=== PATIENT | female | born 1955 | race Caucasian/White ===

== ENCOUNTER 2020-02-29 14:10 | Inpatient (IN) | payer BC, SELFPAY ==
[2020-02-29] VITALS (8 sets, daily range): BP systolic 117–130; BP diastolic 65–93; PULSE 97–112; RESP 18–20; TEMP 36.8–37; O2SAT 90–100; BMI 30.1
--- NOTE | ~2020-02-29 | XR_ITS ---
EXAMINATION: XR chest 1V portable EXAM DATE: 02/29/2020 15:06 INDICATION: cough, SOB, COVID+ . TECHNIQUE: Portable AP frontal chest x-ray was obtained. Comparison is made to prior examination from 04/05/2018. FINDINGS: Extensive bilateral abnormal reticulonodular airspace disease, probably COVID-19 pneumonia given history provided. Lungs were clear on prior x-ray. There is no pneumothorax suspected. There ar e no pleural effusions. Cardiomediastinal silhouette is normal. Moderate thoracolumbar spondylosis. IMPRESSION: Extensive bilateral reticulonodular airspace disease. Clinical correlation. Reviewed, dictated and finalized at location A. MAKER IMPRESSION: Extensive bilateral reticulonodular airspace disease. Clinical cor relation.
--- NOTE | ~2020-02-29 | CT_ITS ---
EXAMINATION: CTA chest PE protocol DATE: 02/29/2020 17:29 INDICATION: COVID positive presenting with shortness of breath and cough TECHNIQUE: Computed tomography (CT) pulmonary angiogram of the chest was performed with 100 mL Omnipa que-350 intravenous contrast. Additional 3D reconstructions utilizing coronal maximum intensity proje ction (MIP) were performed. Automated exposure control and iterative reconstruction technique were em ployed. The dose-length product was 514.17 mGy-cm. COMPARISON: None FINDINGS: Excellent contrast opacification of the pulmonary arteries. There is moderate streak artifact from de nse contrast in the superior vena cava and right atrium. Mild scattered respiratory motion artifact w hich does not significantly limit evaluation. There are multiple bilateral pulmonary emboli including the posterior basilar segmental pulmonary artery of the right lower lobe and multiple subsegmental p ulmonary arteries in all of the remaining lobes of both lungs. Heart size is normal. There is flatten ing of the ventricular septum and relative enlargement of the right atrium and ventricles relative to the left consistent with secondary right heart strain. Enlargement of the central pulmonary arteries consistent with pulmonary arterial hypertension. Bilateral peripheral predominant groundglass opacit ies and consolidation consistent with COVID pneumonia lung disease. No pleural effusion. Mild likely reactive mediastinal and bilateral hilar lymphadenopathy. Status post cholecystectomy. Visualized upp er abdomen is otherwise unremarkable. Severe lower thoracic spondylosis. IMPRESSION: 1. Extensive bilateral pulmonary embolism with moderate clot burden and with physes consistent with p ulmonary arterial hypertension and right heart strain. 2. Extensive bilateral peripheral predominantly disease consistent with COVID 19 pneumonia. Reviewed, dictated and finalized at location . ETING INTELLIGENCE MANAGER IMPRESSION: 1. Extensive bilateral pulmonary embolism with moderate clot burden and with ph yses consistent with pulmonary arterial hypertension and right heart strain. 2. Extensive bilateral peripheral predominantly disease consistent with COVID 1 9 pneumonia.
--- NOTE | 2020-02-29 14:19 | ECG_ITS ---
Measurements Intervals [place] Rate: 116 P: 16 CT: 158 QRS: -3 QRSD: 81 T: 9 QT: 290 QTc: 404 Interpretive Statements SINUS TACHYCARDIA DELAYED PRECORDIAL R/S TRANSITION VOLTAGE CRITERIA FOR LVH MINIMAL Q WAVES- HIGH LATERAL LEADS BORDERLINE T WAVE ABNORMALITY- INFERIOR LEADS BASELINE ARTIFACT- I, III, AVL, V6 ABNORMAL ECG Electronically Signed On 02-29-2020 15:44:12 PRODUCT DEVELOPMENT SPECIALIST by Raphael Callaway D.O.
[2020-02-29 15:30] LABS: Basophils Absolute Auto 0.1 K/mm3 (0.0-0.1); Basophils Percent Auto 0.7 % (0.2-1.2); Eosinophils Percent Auto 0.2 % (0-4.4); Hematocrit 38.7 % (37.0-47.0); Hemoglobin 12.9 g/dL (12.0-15.0); Immature Granulocyte Absolute 0.07 K/mm3 (0.00-0.031); Immature Granulocyte Percent A 0.8 % (0-0.5); Lymphocytes Absolute Auto 0.78 K/mm3 (0.9-3.2); Lymphocytes Percent Auto 9.3 % (18.3-44.2); Mean Corpuscular HGB Conc 33.3 g/dl (32-36); Mean Corpuscular Hemoglobin 30.7 pg (26-34); Mean Corpuscular Volume 92.1 fl (80-100); Mean Platelet Volume 9.3 fl (7.4-10.4); Monocytes Percent Auto 11.4 % (2.6-8.5); Neutrophils Absolute Auto 6.5 K/mm3 (1.3-6.7); Neutrophils Percent Auto 77.6 % (45.5-73.1); Platelet Count Result 346 k/mm3 (150-375); Red Cell Distribution Width 12.9 % (11.5-14.5); White Blood Count 8.4 K/mm3 (4.5-10.0)
[2020-02-29 15:42] LABS: Partial Thromboplastin Time 33.1 SECONDS (22.3-36.8)
[2020-02-29 15:48] LABS: Alanine Aminotransferase 34 U/L (4-35); Albumin Level 3.3 g/dL (3.5-5.1); Alkaline Phosphatase 100 U/L (38-126); Anion Gap 7 mmol/L (8-16); Aspartate Amino Transferase 47 U/L (14-36); Bilirubin,Total 0.9 mg/dL (0.2-1.3); Blood Urea Nitrogen 9 mg/dL (7-17); Calcium 8.9 mg/dL (8.4-10.2); Carbon Dioxide 32 mmol/L (22-30); Chloride 95 mmol/L (98-107); Estimated CRCL calculation 65 ml/min; Estimated Glomerular Filt Rate > 60; Glucose 115 mg/dL (65-105); Potassium 4.1 mmol/L (3.4-5.0); Sodium 134 mmol/L (137-145)
[2020-02-29] MEDS: DEXAMETHASONE SOD PHOS INJ 4 MG/ML VIAL 6 MG IV PUSH (15:49)
--- NOTE | 2020-02-29 16:07 | ED.GENADULT ---
HPI - General Adult General Chief complaint: Shortness of Breath/Dyspnea Stated complaint: SOB - COVID + Time Seen by Provider: 02/29/20 14:19 Source: RN notes reviewed History of Present Illness HPI narrative: Patient presents emergency department from home via EMS for shortness of breath. Patient states she was diagnosed with Covid on February 14 she states that over the past 4 days she has been having increased shortness of breath states is associated with a cough that is nonproductive and nausea and vomiting. Patient does note subjective fevers as well. She denies any chest pain abdominal pain diarrhea or any other symptoms Related Data Home Medications Medication Instructions Recorded Confirmed albuterol sulfate 2.5 mg INHALATION QID PRN 02/29/20 amlodipine 5 mg PO DAILY 02/29/20 ciprofloxacin HCl 02/29/20 losartan-hydrochlorothiazide tablet 02/29/20 Allergies Allergy/AdvReac Type Severity Reaction Status Date / Time adhesive tape Allergy Severe Unverified 04/05/18 19:49 amoxicillin Allergy Severe Unverified 04/05/18 19:49 clarithromycin Allergy Severe Unverified 04/05/18 19:49 codeine Allergy Severe Unverified 04/05/18 19:49 fentanyl Allergy Severe Unverified 04/05/18 19:49 nickel Allergy Severe UNKNOWN Verified 04/05/18 19:49 Sulfa (Sulfonamide Allergy Severe Unverified 04/05/18 19:49 Antibiotics) sulfamethoxazole Allergy Severe Unverified 04/05/18 19:49 tetracycline Allergy Severe Unverified 04/05/18 19:49 trimethoprim Allergy Severe Unverified 04/05/18 19:49 wheat Allergy Severe GI UPSET Verified 04/05/18 19:49 ALL ANESTHETICS Allergy Severe NAUSEA/SEVERE Uncoded 10/17/15 21:30 VOMITING ALL BEE STINGS Allergy Severe ANAPHYLAXIS Uncoded 10/17/15 21:30 ALL SPIDER BITES Allergy Severe ANAPHYLAXIS Uncoded 10/17/15 21:30 BEEF Allergy Severe GI UPSET Uncoded 10/17/15 21:30 COW'S MILK/DAIRY Allergy Severe GI UPSET Uncoded 10/17/15 21:30 ECG ELECTRODE Allergy Severe BLISTERS Uncoded 10/17/15 21:30 NIGHTSHADE VEGETABLES Allergy Severe SWELLING Uncoded 10/17/15 21:30 AND INFLAMMATION IN JOINTS Pork Allergy Severe GI UPSET Uncoded 04/05/18 19:49 REFINED WHITE SUGAR Allergy Severe GI UPSET Uncoded 10/17/15 21:30 STAINLESS STEEL Allergy Severe UNKNOWN Uncoded 10/17/15 21:30 PLASTIC TAPE Allergy Intermediate ITCHING/LESA Uncoded 10/17/15 21:30 H Review of Systems Review of Systems: Narrative: Gen.: Denies fevers or chills ENT: Denies congestion Respiratory: See HPI CV: Denies chest pain or palpitations GI: Denies abdominal pain or diarrhea, reports nausea vomiting Musculoskeletal: Denies back pain or muscle pain Neuro: Denies numbness, tingling, weakness or focal weakness Skin: Denies rash Except as documented, all other systems reviewed and negative [facility] Past Medical History Medical History (Updated 02/29/20 @ 17:59 by Geovani Blanc DO) Hypertension Social History Social History (Updated 02/29/20 @ 16:08 by Geovani Blanc DO) Smoking status: Never smoker Exam Narrative: Exam Narrative: APPEARANCE: No acute distress, nontoxic, resting in bed EYES: EOMI HEENT: Normocephalic, atraumatic, OMM RESPIRATORY: No respiratory distress crackles throughout the bilateral lung mistry, no wheezing CARDIOVASCULAR: Tachycardic and regular without murmurs rubs or gallops. ABDOMINAL: Soft, nontender, nondistended, no rebound or guarding MUSCULOSKELETAl: Moves all extremities. No clubbing, cyanosis or edema. NEURO: Awake and alert. Following commands, speech normal, no focal deficits SKIN:: Warm, dry. No rashes lesions or abrasions PSYCHIATRIC: Normal affect/mood, Course Course Emergency Course: Called and discussed with STAR Xiong presentation work-up agrees with admission at this time. Agrees with [facility] admission by NICOLA Discussed with patient and family results of workup and diagnosis. Discussed need for admission. Patient and family understand and agree to current brian
[2020-02-29 16:38] LABS: D Dimer 11.92 ug/mL (<0.48)
--- NOTE | 2020-02-29 17:59 | PC.NURSE ---
Called lab to add on trop
[2020-02-29 18:22] LABS: Troponin I < 0.012 ng/mL (0.000-0.034)
[2020-02-29] MEDS: ENOXAPARIN 100 MG/ML SYRINGE 85 MG SUB-Q (18:22)
--- NOTE | 2020-02-29 19:45 | PM.IMHP ---
H&P: HPI History of Present Illness Date/Time: 02/29/20 19:45 Chief complaint: Shortness of breath. Narrative: Kimberlee Crooks is a 65-year-old female with hypertension, mitral valve prolapse, and SVT status post cardiac ablation who presented to the emergency department earlier today via EMS from home for evaluation of shortness of breath. She had bunion surgery on January 25, 2020 and was laid up for a couple of weeks due to that. Just before she developed a cough and shortness of breath and she tested positive for COVID-19 on 02/13/20. It sounds like she had a rough couple of weeks but started feel somewhat better on Thursday, however since that time she notes increased and worsening shortness of breath in addition to the cough that she has had since her symptoms began. She also notes nausea and what sounds like posttussive emesis and subjective fever. D-dimer was significantly elevated on arrival to the emergency department she was found to have bilateral pulmonary emboli with moderate clot burden she is being admitted in this setting. She believes she had a DVT previously although it sounds like that may have been a superficial clot prior to varicose vein removal. Again she denies chest pain and has not had pleuritic pain or palpitations. No lightheadedness, dizziness, syncope, or near syncope. Except as documented, all other systems were reviewed and are negative. Review of Systems Review of Systems: Narrative: Twelve systems are reviewed with pertinent positives and negatives as per HPI. Except as documented, all other systems were reviewed and are negative. [facility] Past Medical History Medical History (Updated 02/29/20 @ 23:10 by Inga Stubbs PA-C) Diverticulitis Status post left colectomy. Hyperlipidemia Intolerant to statins secondary to muscle pain. Hypertension Mitral valve prolapse Osteoarthritis Peripheral neuropathy Surgical History Surgical History (Updated 02/29/20 @ 22:58 by Inga Stubbs PA-C) History of arthroscopic knee surgery Removal of what sounds like Mari's cyst bilaterally. History of bilateral carpal tunnel release History of bilateral knee replacement History of bladder repair surgery History of cardiac radiofrequency ablation (~2000) History of hysterectomy (~1981) History of partial colectomy (~12/18/10) Laparoscopic left colectomy for treatment of perforated diverticulitis. History of sinus surgery History of vascular surgery Varicose vein ablation. Family History Family History (Updated 02/29/20 @ 22:58 by Inga Stubbs PA-C) Other Heart disease Hypertension Social History Social History (Updated 02/29/20 @ 22:59 by Inga Stubbs PA-C) Social History: Surrogate decision maker: Niharika Haq (daughter) or Duran Newsome (son). Code status: Full code. Smoking status: Never smoker Alcohol intake: never Substance use: never Additional living arrangements comments: Lives in [place]. Meds Home Medications and Allergies Home Medications Medication Instructions Recorded Confirmed Type albuterol sulfate 2.5 mg INHALATION QID PRN 02/29/20 History amlodipine 5 mg PO DAILY 02/29/20 History ciprofloxacin HCl 02/29/20 History losartan-hydrochlorothiazide tablet 02/29/20 History Allergies Allergy/AdvReac Type Severity Reaction Status Date / Time adhesive tape Allergy Severe Unverified 04/05/18 19:49 amoxicillin Allergy Severe Unverified 04/05/18 19:49 clarithromycin Allergy Severe Unverified 04/05/18 19:49 codeine Allergy Severe Unverified 04/05/18 19:49 fentanyl Allergy Severe Unverified 04/05/18 19:49 nickel Allergy Severe UNKNOWN Verified 04/05/18 19:49 Sulfa (Sulfonamide Allergy Severe Unverified 04/05/18 19:49 Antibiotics) sulfamethoxazole Allergy Severe Unverified 04/05/18 19:49 tetracycline Allergy Severe Unverified 04/05/18 19:49 trimethoprim Allergy Severe Unverified 04/05/18 19:49 wheat Allergy
--- NOTE | 2020-02-29 23:31 | ADMGEN ---
This patient, Kimberlee Crooks, was admitted to IMU Room 213-01 @ 2042, by bed, from the Emergency department. Patient/family oriented to hospital policies and general routines including ID bracelet, bed and alarms, visiting hours, pain management, procedures, bathroom and other care routines, personal items, smoking policy, room service/diet, and visiting hours. Information on how to activate the Rapid Response Team has been discussed. Patient/Family are encouraged to report perceived risks to care and to ask questions if they do not understand what they are told or what they should do.
[2020-02-29 23:52] LABS: Troponin I < 0.012 ng/mL (0.000-0.034)
[2020-03-01] VITALS (17 sets, daily range): BP systolic 104–120; BP diastolic 58–82; PULSE 83–113; RESP 16–18; TEMP 36.4–37.1; O2SAT 86–98
--- NOTE | 2020-03-01 | ECHO_ITS ---
Patient Info Name: Kimberlee Crooks Age: 65 years : 1955 Gender: Female Ht: 64 in Wt: 182 lbs BSA: 1.96 m2 HR: 102 bpm BP: 108 / 58 mmHg Heart Rhythm: Sinus Rhythm Technical Quality: Good Exam Date: 03/01/2020 11:02 AM Exam Location: [facility] Patient Status: Inpatient Admit Date: 03/01/2020 Staff Ordering Physician: Inga Stubbs PA-C Civil Litigation Attorney: Darren Fink RDCS, RT Attending Provider: Andrew Pfeiffer MD Referring Physician: Enoc BLANCAS; Exam Type: CA echo doppler color flow Study Info Indications I27.9 - Pulmonary heart disease, unspecified Complete two-dimensional, color flow and Doppler transthoracic echocardiogram is performed. Summary 1. Complete two-dimensional, color flow and Doppler transthoracic echocardiogram is performed. 2. Left ventricular chamber dimension is normal. 3. Left ventricular systolic function is normal, estimated at 60-65%. 4. Right ventricular chamber dimension is normal. 5. No significant valvular abnormalities. 6. No stigmata of right ventricular pressure overload. Left Ventricle Left ventricular chamber dimension is normal. Left ventricular systolic function is normal, estimated at 60-65%. The left ventricular diastolic function is grade I diastolic dysfunction. Right Ventricle Right ventricular chamber dimension is normal. Left Atria Left atrial chamber dimension is normal. Right Atria Right atrial chamber dimension is normal. Aortic Valve The aortic valve is trileaflet. There is mild aortic valve sclerosis. Pulmonic Valve The pulmonic valve is not well visualized. Mitral Valve The mitral valve has normal leaflets. The mitral valve annulus is mildly calcified. Tricuspid Valve The tricuspid valve leaflets are normal. Pericardium/Pleural The pericardium appears normal. Aorta The aortic root size at the sinus of Valsalva is normal. Tricuspid Valve Name Value Normal TV Regurgitation Doppler TR Peak Velocity 272 cm/s TR Peak Gradient 30 mmHg Report Signatures
[2020-03-01 06:57] LABS: Basophils Percent Auto 0.2 % (0.2-1.2); Hematocrit 34.1 % (37.0-47.0); Hemoglobin 11.1 g/dL (12.0-15.0); Immature Granulocyte Absolute 0.03 K/mm3 (0.00-0.031); Immature Granulocyte Percent A 0.7 % (0-0.5); Lymphocytes Absolute Auto 0.43 K/mm3 (0.9-3.2); Lymphocytes Percent Auto 9.7 % (18.3-44.2); Mean Corpuscular HGB Conc 32.6 g/dl (32-36); Mean Corpuscular Hemoglobin 29.5 pg (26-34); Mean Corpuscular Volume 90.7 fl (80-100); Mean Platelet Volume 9.2 fl (7.4-10.4); Monocytes Absolute Auto 0.3 K/mm3 (0.1-0.6); Monocytes Percent Auto 5.9 % (2.6-8.5); Neutrophils Absolute Auto 3.7 K/mm3 (1.3-6.7); Neutrophils Percent Auto 83.5 % (45.5-73.1); Platelet Count Result 340 k/mm3 (150-375); Red Blood Count 3.76 M/mm3 (4.2-5.4); Red Cell Distribution Width 12.6 % (11.5-14.5); White Blood Count 4.4 K/mm3 (4.5-10.0)
[2020-03-01 07:15] LABS: Anion Gap 3 mmol/L (8-16); Blood Urea Nitrogen 16 mg/dL (7-17); Calcium 8.4 mg/dL (8.4-10.2); Carbon Dioxide 33 mmol/L (22-30); Chloride 99 mmol/L (98-107); Estimated CRCL calculation 66 ml/min; Estimated Glomerular Filt Rate > 60; Glucose 122 mg/dL (65-105); Magnesium 2.6 mg/dL (1.6-2.3); Potassium 5.2 mmol/L (3.4-5.0); Sodium 135 mmol/L (137-145)
[2020-03-01] MEDS: ENOXAPARIN 100 MG/ML SYRINGE 85 MG SUB-Q ×2 (08:57→20:39)
--- NOTE | 2020-03-01 14:58 | PM.IMPN ---
Progress Note: A&P Assessment and Plan (1) Acute respiratory failure with hypoxia: Code(s): J96.01 - Acute respiratory failure with hypoxia Status: Acute Assessment and Plan: From CT chest still evidence of COVID pneumonia outside the window for remdesivir, I added steroids oral and tessalon perles (2) Bilateral pulmonary embolism: Code(s): I26.99 - Other pulmonary embolism without acute cor pulmonale Status: Acute Assessment and Plan: on lovenox BID and oxygen Large PE with clot burden, pulmology consulted for recommendationsas Cardiology out of town Echo ordered continue to watch oxygenation overnite pt is presently on 2 liters (3) COVID-19: Code(s): U07.1 - COVID-19 Status: Acute Assessment and Plan: Feb 14 positive for covid (4) Hypertension: Code(s): I10 - Essential (primary) hypertension Status: Chronic Assessment and Plan: Continue to monitor Subjective Date/time seen: 03/01/20 14:58 Interval history: Mrs Crooks is a 65-year-old female with hypertension, mitral valve prolapse, and SVT status post cardiac ablation who presented to the emergency department earlier today via EMS from home for evaluation of shortness of breath. She had bunion surgery on January 25, 2020 and was laid up for a couple of weeks due to that. COVID positive on feb 14, BL PE, PHTN. Echo ordered. Pulmology consulted. Await echocardiology continue to anticoagulate for now. Vitals stable, pt is on 2 liters. HR is slightly up. can increase oxygen levels when ambulating. Pt had a DVT in past. Was on lovenox then. Pt feels comfortable on oxygen. Advised to ambulate less. Review of Systems Review of Systems: All systems reviewed & are unremarkable except as noted in HPI and below Exam Narrative: Exam Narrative: General: Well-developed female, pleasant friendly holding clear good conversation HEENT: PERRLA Neck: Supple. Respiratory: Mildly tachypneic. Speaking in full sentences. Neurological: Alert. Cranial nerves 2-12 are grossly intact. No gross focal deficits to casual conversation. Psychiatric: Pleasant and cooperative with normal mood and affect. Judgment and insight intact. Objective Data Vital Signs Vital Signs: Vital Signs - 24 hr 02/29/20 16:24 02/29/20 18:23 02/29/20 20:00 Temperature 36.8 C Pulse Rate 112 H 105 H 106 H Respiratory Rate 18 20 20 Blood Pressure 117/88 127/87 130/93 H Pulse Oximetry 97 97 90 02/29/20 20:42 02/29/20 22:00 02/29/20 23:51 Temperature 37.0 C Pulse Rate 107 H 97 97 Respiratory Rate 18 Blood Pressure 120/65 Pulse Oximetry 97 03/01/20 00:00 03/01/20 02:00 03/01/20 03:58 Temperature 36.4 C L Pulse Rate 97 97 92 Respiratory Rate 18 18 Blood Pressure 108/58 L Pulse Oximetry 97 95 03/01/20 04:00 03/01/20 06:00 03/01/20 08:00 Temperature 36.9 C Pulse Rate 95 92 101 H Respiratory Rate 16 Blood Pressure 120/72 Pulse Oximetry 86 L 95 03/01/20 08:55 03/01/20 10:00 03/01/20 11:42 Temperature 37.1 C Pulse Rate 113 H 105 H Respiratory Rate 16 Blood Pressure 104/63 Pulse Oximetry 95 95 03/01/20 12:00 03/01/20 14:00 Temperature Pulse Rate 109 H 109 H Respiratory Rate Blood Pressure Pulse Oximetry 95 Intake/Output Intake/Output: Intake & Output 02/27/20 02/28/20 02/29/20 03/01/20 23:59 23:59 23:59 23:59 Intake Total 940 Output Total 850 Balance 90 Meds/Results Medications: Active Medications Generic Name Dose Route Start Last Admin Trade Name Freq PRN Reason Stop Dose Admin Acetaminophen 650 mg 03/01/20 07:57 Acetaminophen 325 Mg Tablet PO Q6H PRN Mild Pain (1-3) or Fever Albuterol 2 puff 02/29/20 17:03 Albuterol Sulfate (*Sp) Aerosol 1 Puff INHALATION QIDRT PRN Shortness Of Breath Amlodipine Besylate 5 mg 03/01/20 09:00 03/01/20 12:18 Amlodipine Besylate 5 Mg Tablet PO Not
[2020-03-01] MEDS: BENZONATATE 100 MG CAPSULE 200 MG PO (17:12)
[2020-03-01] MEDS: SODIUM POLYSTYRENE SULFONONATE 15 GM/60 ML BTL PO (18:00)
[2020-03-01] MEDS: MONTELUKAST SODIUM 10 MG TABLET PO (20:39)
[2020-03-01] MEDS: hydroCHLOROthiazide 25 MG TABLET PO (20:39)
[2020-03-01] MEDS: LOSARTAN POTASSIUM 100 MG TABLET PO (20:39)
--- NOTE | 2020-03-01 22:43 | PC.NURSE ---
This patient, Kimberlee Crooks, was transferred to [facility] on 03/01/20 at 2235. Personal belongings sent with patient. Report given to Brendan KRAMER. Appropriate documentation sent with patient.
[2020-03-02] VITALS (7 sets, daily range): BP systolic 90–115; BP diastolic 57–77; PULSE 80–117; RESP 16–20; TEMP 36.8–37.1; O2SAT 92–97
[2020-03-02 06:33] LABS: Hematocrit 33.8 % (37.0-47.0); Mean Corpuscular HGB Conc 32.5 g/dl (32-36); Mean Corpuscular Hemoglobin 29.6 pg (26-34); Mean Corpuscular Volume 90.9 fl (80-100); Mean Platelet Volume 8.9 fl (7.4-10.4); Platelet Count Result 428 k/mm3 (150-375); Red Blood Count 3.72 M/mm3 (4.2-5.4); Red Cell Distribution Width 12.8 % (11.5-14.5); White Blood Count 5.5 K/mm3 (4.5-10.0)
[2020-03-02 06:45] LABS: Anion Gap 2 mmol/L (8-16); Blood Urea Nitrogen 18 mg/dL (7-17); Calcium 8.4 mg/dL (8.4-10.2); Carbon Dioxide 36 mmol/L (22-30); Chloride 97 mmol/L (98-107); Estimated CRCL calculation 66 ml/min; Estimated Glomerular Filt Rate > 60; Glucose 95 mg/dL (65-105); Potassium 3.8 mmol/L (3.4-5.0); Sodium 135 mmol/L (137-145)
[2020-03-02] MEDS: BENZONATATE 100 MG CAPSULE 200 MG PO ×3 (08:35→17:34)
[2020-03-02] MEDS: ENOXAPARIN 100 MG/ML SYRINGE 85 MG SUB-Q ×2 (08:35→20:53)
[2020-03-02] MEDS: amLODIPine BESYLATE 5 MG TABLET PO (08:36)
[2020-03-02] MEDS: DEXAMETHASONE 2 MG TABLET 6 MG PO (08:36)
--- NOTE | 2020-03-02 14:09 | PM.IMPN ---
Progress Note: A&P Assessment and Plan (1) Acute respiratory failure with hypoxia: Code(s): J96.01 - Acute respiratory failure with hypoxia Status: Acute Assessment and Plan: From CT chest still evidence of COVID pneumonia outside the window for remdesivir, I added steroids oral and tessalon perles Pt having wet cough greenish in color Pt to start evaquin add zofran as pt has sickness with ABX (2) Bilateral pulmonary embolism: Code(s): I26.99 - Other pulmonary embolism without acute cor pulmonale Status: Acute Assessment and Plan: on lovenox BID and oxygen Large PE with clot burden, pulmology consulted for recommendations as Cardiology out of town Echo ordered continue to watch oxygenation overnite pt is presently on 5 liters Pulmology consulted (3) COVID-19: Code(s): U07.1 - COVID-19 Status: Acute Assessment and Plan: Feb 14 positive for covid (4) Hypertension: Code(s): I10 - Essential (primary) hypertension Status: Chronic Assessment and Plan: BP is bit low and we will hold HTN medications Subjective Date/time seen: 03/02/20 14:09 Interval history: Mrs Crooks is a 65-year-old female with hypertension, mitral valve prolapse, and SVT status post cardiac ablation who presented to the emergency department earlier today via EMS from home for evaluation of shortness of breath. She had bunion surgery on January 25, 2020 and was laid up for a couple of weeks due to that. COVID positive on feb 14, BL PE, PHTN. Echo ordered. Pulmology consulted. Pt is on 5 liters of oxygen presently. Bp little soft, I will hold her BP medications. Overall pt is feeling better Review of Systems Review of Systems: All systems reviewed & are unremarkable except as noted in HPI and below Cardiovascular: Cardiovascular: Denies chest pain Respiratory: Respiratory: Reports cough and Reports dyspnea Comments: Wet cough Exam Narrative: Exam Narrative: General: Well-developed female, pleasant friendly holding clear good conversation HEENT: PERRLA Neck: Supple. Respiratory: Normal respiratory effect, on 5 liter of oxygen. Neurological: Alert. Cranial nerves 2-12 are grossly intact. No gross focal deficits to casual conversation. Psychiatric: Pleasant and cooperative with normal mood and affect. Judgment and insight intact. Objective Data Vital Signs Vital Signs: Vital Signs - 24 hr 03/01/20 15:34 03/01/20 16:00 03/01/20 18:00 Temperature 36.4 C L Pulse Rate 104 H 108 H 98 Respiratory Rate 16 16 Blood Pressure 108/64 Pulse Oximetry 95 95 03/01/20 20:00 03/01/20 22:00 03/01/20 22:50 Temperature 36.6 C Pulse Rate 96 83 Respiratory Rate 16 Blood Pressure 117/82 Pulse Oximetry 93 98 03/02/20 00:00 03/02/20 04:00 03/02/20 05:00 Temperature 36.9 C 36.9 C Pulse Rate 83 80 Respiratory Rate 16 16 Blood Pressure 90/60 L 93/57 L 110/68 Pulse Oximetry 97 96 03/02/20 08:00 03/02/20 12:00 Temperature 37.1 C 36.8 C Pulse Rate 88 88 Respiratory Rate 20 20 Blood Pressure 115/77 96/59 L Pulse Oximetry 97 96 Intake/Output Intake/Output: Intake & Output 02/28/20 02/29/20 03/01/20 03/02/20 23:59 23:59 23:59 23:59 Intake Total 1180 480 Output Total 1050 800 Balance 130 -320 Meds/Results Medications: Active Medications Generic Name Dose Route Start Last Admin Trade Name Freq PRN Reason Stop Dose Admin Acetaminophen 650 mg 03/01/20 07:57 Acetaminophen 325 Mg Tablet PO Q6H PRN Mild Pain (1-3) or Fever Albuterol 2 puff 02/29/20 17:03 Albuterol Sulfate (*Sp) Aerosol 1 Puff INHALATION QIDRT PRN Shortness Of Breath Amlodipine Besylate 5 mg 03/01/20 09:00 03/02/20 08:36 Amlodipine Besylate 5 Mg Tablet PO 5 mg DAILY AURA Administration Benzonatate 200 mg 03/01/20 17:00 03/02/20 08:35 Benzonatate 100 Mg Capsule PO 200 mg TID AURA Administration De
[2020-03-02] MEDS: hydroCHLOROthiazide 25 MG TABLET PO (20:53)
[2020-03-02] MEDS: MONTELUKAST SODIUM 10 MG TABLET PO (20:53)
[2020-03-03] VITALS (7 sets, daily range): BP systolic 96–125; BP diastolic 58–81; PULSE 75–95; RESP 16–18; TEMP 36.4–36.8; O2SAT 92–98
[2020-03-03] MEDS: DEXAMETHASONE 2 MG TABLET 6 MG PO (09:11)
[2020-03-03] MEDS: BENZONATATE 100 MG CAPSULE 200 MG PO ×3 (09:12→18:22)
[2020-03-03] MEDS: ENOXAPARIN 100 MG/ML SYRINGE 85 MG SUB-Q ×2 (09:13→20:24)
[2020-03-03] MEDS: ONDANSETRON HCL ODT 4 MG TABLET PO (09:17)
--- NOTE | 2020-03-03 16:54 | PM.IMPN ---
Progress Note: A&P Assessment and Plan (1) Acute respiratory failure with hypoxia: Code(s): J96.01 - Acute respiratory failure with hypoxia Status: Acute Assessment and Plan: From CT chest still evidence of COVID pneumonia outside the window for remdesivir, I added steroids oral and tessalon perles Pt having wet cough greenish in color Pt to start levaquin add zofran as pt has sickness with ABX pt feels much better today (2) Bilateral pulmonary embolism: Code(s): I26.99 - Other pulmonary embolism without acute cor pulmonale Status: Acute Assessment and Plan: on lovenox BID and oxygen Large PE with clot burden, pulmology consulted for recommendations as Cardiology out of town Echo ordered continue to watch oxygenation overnite pt is presently on 2 liters Pulmology consulted Continue to oxygen Consider which oral anticiagulation on thursday. (3) COVID-19: Code(s): U07.1 - COVID-19 Status: Acute Assessment and Plan: Feb 14 positive for covid (4) Hypertension: Code(s): I10 - Essential (primary) hypertension Status: Chronic Assessment and Plan: BP is bit low and we will hold HTN medications Subjective Date/time seen: 03/03/20 16:54 Interval history: Mrs Crooks is a 65-year-old female with hypertension, mitral valve prolapse, and SVT status post cardiac ablation who presented to the emergency department earlier today via EMS from home for evaluation of shortness of breath. She had bunion surgery on January 25, 2020 and was laid up for a couple of weeks due to that. COVID positive on feb 14, BL PE, PHTN. Echo ordered. Pulmology consulted. Pt is on 2 liters of oxygen presently. Bp little soft, I will hold her BP medications. Overall, pt is feeling better, anticoagulation will be considered on thursday. Some complaints of constipation. Review of Systems Review of Systems: All systems reviewed & are unremarkable except as noted in HPI and below Exam Narrative: Exam Narrative: General: Well-developed female, pleasant friendly holding clear good conversation HEENT: PERRLA Neck: Supple. Respiratory: Normal respiratory effect, on 2 liter of oxygen. Neurological: Alert. Cranial nerves 2-12 are grossly intact. No gross focal deficits to casual conversation. Psychiatric: Pleasant and cooperative with normal mood and affect. Judgment and insight intact. Objective Data Vital Signs Vital Signs: Vital Signs - 24 hr 03/02/20 20:00 03/03/20 00:00 03/03/20 04:00 Temperature 36.9 C 36.8 C 36.7 C Pulse Rate 95 88 75 Respiratory Rate 18 18 18 Blood Pressure 113/76 106/72 112/73 Pulse Oximetry 96 97 97 03/03/20 08:00 03/03/20 09:10 03/03/20 12:00 Temperature 36.6 C 36.4 C Pulse Rate 81 86 Respiratory Rate 18 16 Blood Pressure 125/81 96/67 L Pulse Oximetry 92 92 97 Intake/Output Intake/Output: Intake & Output 02/29/20 03/01/20 03/02/20 03/03/20 23:59 23:59 23:59 23:59 Intake Total 1180 1330 1170 Output Total 7422 184 8591 Balance 130 380 -30 Meds/Results Medications: Active Medications Generic Name Dose Route Start Last Admin Trade Name Freq PRN Reason Stop Dose Admin Acetaminophen 650 mg 03/01/20 07:57 Acetaminophen 325 Mg Tablet PO Q6H PRN Mild Pain (1-3) or Fever Albuterol 2 puff 02/29/20 17:03 Albuterol Sulfate (*Sp) Aerosol 1 Puff INHALATION QIDRT PRN Shortness Of Breath Amlodipine Besylate 5 mg 03/01/20 09:00 03/02/20 08:36 Amlodipine Besylate 5 Mg Tablet PO 5 mg DAILY [facility] Administration Benzonatate 200 mg 03/01/20 17:00 03/03/20 12:37 Benzonatate 100 Mg Capsule PO 200 mg TID [facility] Administration Dexamethasone 6 mg 03/02/20 08:00 03/03/20 09:11 Dexamethasone 2 Mg Tablet PO 03/11/20 08:01 6 mg DAILY@0800 [facility] Administration Docusate Sodium 100 mg 03/03/20 14:51 Docusate Sodium 100 Mg Capsule PO Q12H PRN Constipation
[2020-03-03] MEDS: hydroCHLOROthiazide 25 MG TABLET PO (20:24)
[2020-03-03] MEDS: MONTELUKAST SODIUM 10 MG TABLET PO (20:24)
[2020-03-04] VITALS (8 sets, daily range): BP systolic 102–110; BP diastolic 63–82; PULSE 74–88; RESP 16–18; TEMP 36.6–37.1; O2SAT 94–99
[2020-03-04] MEDS: ERGOCALCIFEROL 50,000 UNIT CAPSULE 50000 UNITS BY MOUTH (08:33)
[2020-03-04] MEDS: BENZONATATE 100 MG CAPSULE 200 MG PO ×3 (08:33→17:22)
[2020-03-04] MEDS: DEXAMETHASONE 2 MG TABLET 6 MG PO (08:33)
[2020-03-04] MEDS: ENOXAPARIN 100 MG/ML SYRINGE 85 MG SUB-Q ×2 (08:34→21:08)
[2020-03-04] MEDS: ONDANSETRON HCL ODT 4 MG TABLET PO (08:36)
[2020-03-04] MEDS: DOCUSATE SODIUM 100 MG CAPSULE PO (08:45)
--- NOTE | 2020-03-04 18:11 | PM.IMPN ---
Progress Note: A&P Assessment and Plan (1) Acute respiratory failure with hypoxia: Code(s): J96.01 - Acute respiratory failure with hypoxia Status: Acute Assessment and Plan: From CT chest still evidence of COVID pneumonia outside the window for remdesivir, I added steroids oral and tessalon perles Pt having wet cough greenish in color Pt to start levaquin add zofran as pt has sickness with ABX pt feels much better today 03/04/20 18:11 Mrs Crooks is a 65-year-old female with hypertension, mitral valve prolapse, and SVT status post cardiac ablation who presented to the emergency department earlier today via EMS from home for evaluation of shortness of breath. She had bunion surgery on January 25, 2020 and was laid up for a couple of weeks due to that. COVID positive on feb 14, BL PE, PHTN. Echo ordered. Pulmology consulted. Pt is on 2 liters of oxygen presently. Bp little soft, I will hold her BP medications. Overall, pt is feeling better, anticoagulation will be considered on thursday. Some complaints of constipation. Currently patient is on Lovenox for anticoagulation, to further evaluate patient had a cardiac echo which is essentially normal did not show any right heart strain, patient states feeling somewhat better compared to when she arrived still is not able to take a deep breath, denies any fever or chills (2) Bilateral pulmonary embolism: Code(s): I26.99 - Other pulmonary embolism without acute cor pulmonale Status: Acute Assessment and Plan: on lovenox BID and oxygen Large PE with clot burden, pulmology consulted for recommendations as Cardiology out of town Echo ordered continue to watch oxygenation overnite pt is presently on 2 liters Pulmology consulted Continue to oxygen Consider which oral anticiagulation on thursday. (3) COVID-19: Code(s): U07.1 - COVID-19 Status: Acute Assessment and Plan: Feb 14 positive for covid (4) Hypertension: Code(s): I10 - Essential (primary) hypertension Status: Chronic Assessment and Plan: BP is bit low and we will hold HTN medications Subjective Date/time seen: 03/04/20 18:11 Interval history: Mrs Crooks is a 65-year-old female with hypertension, mitral valve prolapse, and SVT status post cardiac ablation who presented to the emergency department earlier today via EMS from home for evaluation of shortness of breath. She had bunion surgery on January 25, 2020 and was laid up for a couple of weeks due to that. COVID positive on feb 14, BL PE, PHTN. Echo ordered. Pulmology consulted. Pt is on 2 liters of oxygen presently. Bp little soft, I will hold her BP medications. Overall, pt is feeling better, anticoagulation will be considered on thursday. Some complaints of constipation. Currently patient is on Lovenox for anticoagulation, to further evaluate patient had a cardiac echo which is essentially normal did not show any right heart strain, patient states feeling somewhat better compared to when she arrived still is not able to take a deep breath, denies any fever or chills Review of Systems Review of Systems: All systems reviewed & are unremarkable except as noted in HPI and below Exam Narrative: Exam Narrative: Patient is comfortable, NAD HEENT: eyes are clear and none icteric LUNGS: Bilateral fair air entry with rhonchi HEART: RR S1S2 ABD: BS+, Soft and nontender Lower extremities: no edema SKIN: nonjaundiced Neuro: grossly intact. Objective Data Vital Signs Vital Signs: Vital Signs - 24 hr 03/03/20 20:00 03/04/20 00:00 03/04/20 04:00 Temperature 97.5 F L 97.9 F 98.4 F Pulse Rate 89 87 77 Respiratory Rate 18 18 18 Blood Pressure 100/65 107/69 109/75 Pulse Oximetry 95 96 99 03/04/20 08:00 03/04/20 08:30 03/04/20 12:00 Temperature 98.1 F 98.6 F Pulse Rate 75 74 Respiratory Rate 18 18 Blood Pressure 109/79 110/82 Pulse Oximetry 97 96 98 03/04/20 16:00 Temperature
[2020-03-04] MEDS: MONTELUKAST SODIUM 10 MG TABLET PO (21:09)
[2020-03-04] MEDS: hydroCHLOROthiazide 25 MG TABLET PO (21:09)
--- NOTE | 2020-03-04 21:41 | PM.CNPUL ---
Assessment and Plan Assessment and plan (1) Bilateral pulmonary embolism: Onset Date: ~02/2020 Code(s): I26.99 - Other pulmonary embolism without acute cor pulmonale Status: Acute Assessment and Plan: This patient has bilateral pulmonary emboli associated with COVID pneumonia. Her oxygenation has improved, she is now down to 1 liter/minute. She is much less short of breath. Although the initial CT chest showed right heart strain the patient has a normal echocardiogram. She has a normal EF, the RVSP and right ventricular chambers are normal. Her initial sodium was 134-135, essentially normal. She does not have any indication that this pulmonary emboli will be a long-term problem for her. We did not have a troponin or a be in pea for prognostic factors but overall with the echo normal this issue should not be a long-time problem. She did have a left leg DVT in 2011 after a left varicose vein ablation so that was a provoked clot. This PE is due to COVID so there is no need for a hypercoagulable workup. She can transition from full dose Lovenox to an oral anticoagulant. This generally depends on what insurance will cover. I recommend Eliquis. (2) COVID-19: Code(s): U07.1 - COVID-19 Status: Acute Assessment and Plan: SARS-CoV-2 (+) Feb 24 with progressive symptoms compatible with pneumonia; diffuse infiltrates, hypoxemia. She is doing well on 1 liter/minute. She is on dexamethasone to complete 10 days. History of Present Illness History of Present Illness Consult date: 03/05/20 Requesting physician: Andrew Pfeiffer MD Reason for consult: pulmonary embolism Chief complaint: COVID 19, Acute Respiratory failure with hypoxia Narrative: NEW: Kimberlee Crooks ios a 65-year-old woman who had left foot surgery January 24 and was sedentary afterwards. Around she developed shortness of breath with coughing. She tested positive for COVID on February 12. She started to feel better a day or two later but then had significant fevers, coughing that was severe and associated with vomiting. In addition, she had nausea. Due to worsening shortness of breath she presented to the emergency department where her chest CT showed diffuse infiltrates on CT scan consistent with COVID pneumonia as well as large bilateral pulmonary emboli. Her CT chest showed right heart strain. However fortunately her echocardiogram shows normal right ventricular systolic pressures and normal right ventricular dimension. She does not have any underlying history of heart lung disease. She feels much better than she did at the time of admission however she is not able to take a deep breath. She does not have pleuritic chest discomfort but she does have limitation on taking a deep breath. Her D-dimer is elevated on Feb 28 at 11.92. she was initially on 2 liters/minute and then on March 02 required 5 liters/minute but March 04 has been weaned down to 1 L minute and is doing quite well. She is clinically improving. She tells me that she had a vein stripping in the left leg 8 years ago in after that she developed a DVT in the left femoral artery. She was treated with subcutaneous heparin for 6 weeks and she was on bed rest for quite a while. I am guessing that it may have been sub-Q lovenox. This event would have been a provoked event. Review of Systems Review of Systems: All systems reviewed & are unremarkable except as noted in HPI and below PMFSH Past Medical History Medical History (Updated 03/05/20 @ 12:38 by Lizbeth Escobar MD) Diverticulitis Status post left colectomy. Hyperlipidemia Intolerant to statins secondary to muscle pain. Hypertension Mitral valve prolapse Osteoarthritis Peripheral neuropathy Surgical History Surgical History (Updated 03/05/20 @ 12:35 b
[2020-03-05] VITALS (16 sets, daily range): BP systolic 103–112; BP diastolic 67–79; PULSE 68–116; RESP 18–22; TEMP 36.4–36.8; O2SAT 86–98
[2020-03-05 06:16] LABS: Basophils Percent Auto 0.3 % (0.2-1.2); Hemoglobin 12.3 g/dL (12.0-15.0); Immature Granulocyte Absolute 0.11 K/mm3 (0.00-0.031); Immature Granulocyte Percent A 1.4 % (0-0.5); Lymphocytes Absolute Auto 1.29 K/mm3 (0.9-3.2); Lymphocytes Percent Auto 16.3 % (18.3-44.2); Mean Corpuscular HGB Conc 33.2 g/dl (32-36); Mean Corpuscular Hemoglobin 30.1 pg (26-34); Mean Corpuscular Volume 90.5 fl (80-100); Mean Platelet Volume 8.9 fl (7.4-10.4); Monocytes Absolute Auto 0.7 K/mm3 (0.1-0.6); Monocytes Percent Auto 9.4 % (2.6-8.5); Neutrophils Absolute Auto 5.7 K/mm3 (1.3-6.7); Neutrophils Percent Auto 72.6 % (45.5-73.1); Platelet Count Result 531 k/mm3 (150-375); Red Blood Count 4.09 M/mm3 (4.2-5.4); Red Cell Distribution Width 12.2 % (11.5-14.5); White Blood Count 7.9 K/mm3 (4.5-10.0)
[2020-03-05 06:36] LABS: Alanine Aminotransferase 71 U/L (4-35); Albumin Level 3.2 g/dL (3.5-5.1); Alkaline Phosphatase 66 U/L (38-126); Anion Gap 3 mmol/L (8-16); Aspartate Amino Transferase 53 U/L (14-36); Bilirubin,Total 0.5 mg/dL (0.2-1.3); Blood Urea Nitrogen 20 mg/dL (7-17); CRP 0.5 mg/dL (<1.0); Calcium 9.3 mg/dL (8.4-10.2); Carbon Dioxide 35 mmol/L (22-30); Chloride 97 mmol/L (98-107); Estimated CRCL calculation 73 ml/min; Estimated Glomerular Filt Rate > 60; Glucose 103 mg/dL (65-105); Potassium 4.6 mmol/L (3.4-5.0); Sodium 135 mmol/L (137-145)
[2020-03-05] MEDS: DEXAMETHASONE 2 MG TABLET 6 MG PO (08:23)
[2020-03-05] MEDS: BENZONATATE 100 MG CAPSULE 200 MG PO ×3 (08:23→16:35)
[2020-03-05] MEDS: ENOXAPARIN 100 MG/ML SYRINGE 85 MG SUB-Q (08:23)
[2020-03-05] MEDS: ONDANSETRON HCL ODT 4 MG TABLET PO (08:28)
--- NOTE | 2020-03-05 13:47 | PM.PNPUL ---
Progress Note: A&P Assessment and Plan (1) Bilateral pulmonary embolism: Onset Date: ~02/2020 Code(s): I26.99 - Other pulmonary embolism without acute cor pulmonale Status: Acute Assessment and Plan: - agree with [facility] for P.E. for six months - stable, no complications of pulmonary hypertension (2) COVID-19: Code(s): U07.1 - COVID-19 Status: Acute Assessment and Plan: I did not see any treatment with remdesivir or dexamethasone due to lack of significant hypoxemia Seems to be slowly recovering. May develop terminal make up operator fibrosis, how much only time will tell Will repeat CT chest in about a month and PFT (3) Acute respiratory failure with hypoxia: Code(s): J96.01 - Acute respiratory failure with hypoxia Status: Acute (4) Asthma: Code(s): J45.909 - Unspecified asthma, uncomplicated Status: Acute Assessment and Plan: Will switch her from home Flovent to Symbicort 160/4.5 mcg 2 puffs bid. PFT as outpatient Subjective Date/time seen: 03/05/20 13:47 Interval history: 65 y/o female with COVID-19, h/o Asthma previously on Flovent bid. She still has a mild cough but oxygenation is been very good 98% on 2 liters only. Review of Systems Review of Systems: All systems reviewed & are unremarkable except as noted in HPI and below Exam Const: General: cooperative, healthy appearing, comfortable, no acute distress, well developed, alert, awake and Physically active Eyes: General: appearance normal, both eyes and all related structures Resp: Effort & Inspection: normal respiratory effort and able to speak in complete sentences Auscultation: crackles bilateral Cardio: Jugular venous distension: no JVD Rate: regular rate Rhythm: regular rhythm Heart sounds: S1 normal heart sound present and S2 normal heart sound present GI: Inspection: normal to inspection Auscultation: normal bowel sounds Extrem: General: no clubbing, cyanosis or edema Psych: Appearance: grossly normal and well kempt Mental Status: mental status grossly normal Objective Data Vital Signs Vital Signs: Vital Signs - 24 hr 03/04/20 16:00 03/04/20 20:00 03/04/20 20:26 Temperature 37.1 C 36.8 C Pulse Rate 77 88 Respiratory Rate 18 16 Blood Pressure 102/63 106/71 Pulse Oximetry 96 94 94 03/05/20 00:00 03/05/20 04:00 03/05/20 08:00 Temperature 36.6 C 36.6 C 36.4 C Pulse Rate 73 68 79 Respiratory Rate 18 18 20 Blood Pressure 107/72 112/75 107/67 Pulse Oximetry 98 97 98 03/05/20 08:20 03/05/20 11:05 03/05/20 12:00 Temperature 36.7 C Pulse Rate 83 Respiratory Rate 22 H Blood Pressure 103/69 Pulse Oximetry 98 96 95 Intake/Output Intake/Output: Intake & Output 03/02/20 03/03/20 03/04/20 03/05/20 23:59 23:59 23:59 23:59 Intake Total 1330 2340 2510 440 Output Total 950 1200 1600 600 Balance 380 1140 910 -160 Meds/Results Medications: Active Medications Generic Name Dose Route Start Last Admin Trade Name Freq PRN Reason Stop Dose Admin Acetaminophen 650 mg 03/01/20 07:57 Acetaminophen 325 Mg Tablet PO Q6H PRN Mild Pain (1-3) or Fever Albuterol 2 puff 02/29/20 17:03 Albuterol Sulfate (*Sp) Aerosol 1 Puff INHALATION QIDRT PRN Shortness Of Breath Amlodipine Besylate 5 mg 03/01/20 09:00 03/02/20 08:36 Amlodipine Besylate 5 Mg Tablet PO 5 mg DAILY [facility] Administration Benzonatate 200 mg 03/01/20 17:00 03/05/20 12:53 Benzonatate 100 Mg Capsule PO 200 mg TID [facility] Administration Budesonide/Formoterol Fumarate 2 puff 03/05/20 13:45 Budesonide/Form 160-4.5 Mcg (*Sp) INHALATION Q12HRT [facility] Dexamethasone 6 mg 03/02/20 08:00 03/05/20 08:23 Dexamethasone 2 Mg Tablet PO 03/11/20 08:01 6 mg DAILY@0800 [facility] Administration Docusate Sodium 100 mg 03/03/20 14:51 03/04/20 08:45 Docusate Sodium 100 Mg Capsule PO 100 mg Q12H PRN Administration Constipation Enoxaparin
[2020-03-05] MEDS: ALBUTEROL SULFATE (*SP) AEROSOL 1 PUFF 2 PUFF INHALATION (14:14)
--- NOTE | 2020-03-05 14:31 | PCRCNOTE ---
Addendum entered by Margaret Bosch, AQUILINO 03/05/20 14:32: TANK DELIVERED TO PT'S ROOM Original Note: HOME O2 EVAL COMPLETE, 2 LITERS WITH ACTIVITY
--- NOTE | 2020-03-05 15:25 | PM.IMPN ---
Progress Note: A&P Assessment and Plan (1) Acute respiratory failure with hypoxia: Code(s): J96.01 - Acute respiratory failure with hypoxia Status: Acute Assessment and Plan: From CT chest still evidence of COVID pneumonia outside the window for remdesivir, I added steroids oral and tessalon perles Pt having wet cough greenish in color Pt to start levaquin add zofran as pt has sickness with ABX pt feels much better today 03/05/20 15:25 Mrs Crooks is a 65-year-old female with hypertension, mitral valve prolapse, and SVT status post cardiac ablation who presented to the emergency department via EMS from home for evaluation of shortness of breath. She had bunion surgery on January 25, 2020 and was laid up for a couple of weeks due to that. COVID positive on feb 14, PE, PHTN. Echo ordered. Pulmology consulted. Pt is on 2 liters of oxygen presently. Bp little soft, I will hold her BP medications. Overall, pt is feeling better, anticoagulation will be considered on thursday. Some complaints of constipation. Patient was seen by finance and administration manager suspect pulmonary emboli due to COVID and does not need and further workup for coagulopathy, recommending to switch over oral anticoagulation, also recommended to complete course of dexamethasone ten days. Currently patient is on Lovenox for anticoagulation, to further evaluate patient had a cardiac echo which is essentially normal did not show any right heart strain, patient states feeling somewhat better compared to when she arrived still is not able to take a deep breath, and requiring 1 L of oxygen per nasal cannula denies any fever or chills, will continue to monitor will do the home O2 eval if remains clinically stable will discharge the patient home tomorrow on Eliquis (2) Bilateral pulmonary embolism: Onset Date: ~02/2020 Code(s): I26.99 - Other pulmonary embolism without acute cor pulmonale Status: Acute Assessment and Plan: on lovenox BID and oxygen Large PE with clot burden, pulmology consulted for recommendations as Cardiology out of town Echo ordered continue to watch oxygenation overnite pt is presently on 2 liters Pulmology consulted Continue to oxygen Consider which oral anticiagulation on Thursday. (3) COVID-19: Code(s): U07.1 - COVID-19 Status: Acute Assessment and Plan: Feb 14 positive for covid (4) Hypertension: Code(s): I10 - Essential (primary) hypertension Status: Chronic Assessment and Plan: BP is bit low and we will hold HTN medications Subjective Date/time seen: 03/05/20 15:25 Mrs Crooks is a 65-year-old female with hypertension, mitral valve prolapse, and SVT status post cardiac ablation who presented to the emergency department via EMS from home for evaluation of shortness of breath. She had bunion surgery on January 25, 2020 and was laid up for a couple of weeks due to that. COVID positive on feb 14, BL PE, PHTN. Echo ordered. Pulmology consulted. Pt is on 2 liters of oxygen presently. Bp little soft, I will hold her BP medications. Overall, pt is feeling better, anticoagulation will be considered on thursday. Some complaints of constipation. Patient was seen by finance and administration manager suspect pulmonary emboli due to COVID and does not need and further workup for coagulopathy, recommending to switch over oral anticoagulation, also recommended to complete course of dexamethasone ten days. Currently patient is on Lovenox for anticoagulation, to further evaluate patient had a cardiac echo which is essentially normal did not show any right heart strain, patient states feeling somewhat better compared to when she arrived still is not able to take a deep breath, and requiring 1 L of oxygen per nasal cannula denies any fever or chills, will continue to monitor will do the home O2 eval if remains clinically stable will discharge the patient home tomorrow on Eliquis Review of Systems Review of Systems: Al
[2020-03-05] MEDS: hydroCHLOROthiazide 25 MG TABLET PO (21:04)
[2020-03-05] MEDS: MONTELUKAST SODIUM 10 MG TABLET PO (21:04)
[2020-03-05] MEDS: APIXABAN 5 MG TABLET 10 MG PO (21:04)
[2020-03-06] VITALS: BP 108/66; PULSE 79; RESP 16; TEMP 36.8; O2SAT 97
[2020-03-06 04:00] VITALS: BP 108/71; PULSE 65; RESP 20; TEMP 36.8; O2SAT 98
[2020-03-06 08:00] VITALS: BP 110/75; PULSE 69; RESP 18; TEMP 36.7; O2SAT 96
[2020-03-06 08:59] LABS: Basophils Percent Auto 0.2 % (0.2-1.2); Hematocrit 37.9 % (37.0-47.0); Hemoglobin 12.3 g/dL (12.0-15.0); Immature Granulocyte Absolute 0.18 K/mm3 (0.00-0.031); Immature Granulocyte Percent A 2.2 % (0-0.5); Lymphocytes Absolute Auto 1.31 K/mm3 (0.9-3.2); Lymphocytes Percent Auto 16.2 % (18.3-44.2); Mean Corpuscular HGB Conc 32.5 g/dl (32-36); Mean Corpuscular Hemoglobin 29.9 pg (26-34); Mean Platelet Volume 8.7 fl (7.4-10.4); Monocytes Absolute Auto 0.7 K/mm3 (0.1-0.6); Neutrophils Absolute Auto 5.9 K/mm3 (1.3-6.7); Neutrophils Percent Auto 73.4 % (45.5-73.1); Platelet Count Result 508 k/mm3 (150-375); Red Blood Count 4.12 M/mm3 (4.2-5.4); Red Cell Distribution Width 12.6 % (11.5-14.5); White Blood Count 8.1 K/mm3 (4.5-10.0)
[2020-03-06 09:17] LABS: Alanine Aminotransferase 110 U/L (4-35); Albumin Level 3.2 g/dL (3.5-5.1); Alkaline Phosphatase 66 U/L (38-126); Anion Gap 3 mmol/L (8-16); Aspartate Amino Transferase 52 U/L (14-36); Bilirubin,Total 0.4 mg/dL (0.2-1.3); Blood Urea Nitrogen 25 mg/dL (7-17); CRP < 0.5 mg/dL (<1.0); Calcium 9.2 mg/dL (8.4-10.2); Carbon Dioxide 36 mmol/L (22-30); Chloride 95 mmol/L (98-107); Estimated CRCL calculation 73 ml/min; Estimated Glomerular Filt Rate > 60; Glucose 91 mg/dL (65-105); Potassium 4.3 mmol/L (3.4-5.0); Sodium 134 mmol/L (137-145)
[2020-03-06 09:40] VITALS: O2SAT 96
[2020-03-06] MEDS: BENZONATATE 100 MG CAPSULE 200 MG PO ×2 (09:43→12:33)
[2020-03-06] MEDS: ONDANSETRON HCL ODT 4 MG TABLET PO (09:43)
[2020-03-06] MEDS: DEXAMETHASONE 2 MG TABLET 6 MG PO (09:44)
[2020-03-06] MEDS: APIXABAN 5 MG TABLET 10 MG PO (09:44)
[2020-03-06 12:00] VITALS: BP 107/76; PULSE 87; RESP 16; TEMP 36.6; O2SAT 96
--- NOTE | 2020-03-06 12:51 | PM.PNPUL ---
Progress Note: A&P Assessment and Plan (1) Bilateral pulmonary embolism: Onset Date: ~02/2020 Code(s): I26.99 - Other pulmonary embolism without acute cor pulmonale Status: Acute Assessment and Plan: - agree with [facility] for P.E. for six months - stable, no complications of pulmonary hypertension (2) COVID-19: Code(s): U07.1 - COVID-19 Status: Acute Assessment and Plan: I did not see any treatment with remdesivir or dexamethasone due to lack of significant hypoxemia Seems to be slowly recovering. May develop manager intermediate fibrosis, how much only time will tell Will repeat CT chest in about a month and PFT (3) Acute respiratory failure with hypoxia: Code(s): J96.01 - Acute respiratory failure with hypoxia Status: Acute Assessment and Plan: -agree with home oxygen 2 liters with exertion but does -no need for oxygen with exertion. (4) Asthma: Code(s): J45.909 - Unspecified asthma, uncomplicated Status: Acute Assessment and Plan: Will switch her from home Flovent to Symbicort 160/4.5 mcg 2 puffs bid. PFT as outpatient Subjective Date/time seen: 03/06/20 12:51 Interval history: Slight hypoxia down to 86% on exertion yesterday. Agree with 2 liters oxygen during exertion only. Does not need at rest Review of Systems Review of Systems: All systems reviewed & are unremarkable except as noted in HPI and below Exam Const: General: cooperative, healthy appearing, comfortable, no acute distress, well developed, alert, awake and Physically active Eyes: General: appearance normal, both eyes and all related structures Resp: Effort & Inspection: normal respiratory effort and able to speak in complete sentences Auscultation: crackles bilateral Cardio: Jugular venous distension: no JVD Rate: regular rate Rhythm: regular rhythm Heart sounds: S1 normal heart sound present and S2 normal heart sound present GI: Inspection: normal to inspection Auscultation: normal bowel sounds Extrem: General: no clubbing, cyanosis or edema Psych: Appearance: grossly normal and well kempt Mental Status: mental status grossly normal Objective Data Vital Signs Vital Signs: Vital Signs - 24 hr 03/05/20 13:50 03/05/20 13:55 03/05/20 14:00 Temperature Pulse Rate 104 H 108 H 112 H Respiratory Rate Blood Pressure Pulse Oximetry 92 86 L 88 L 03/05/20 14:05 03/05/20 14:20 03/05/20 16:00 Temperature 36.8 C Pulse Rate 116 H 103 H 85 Respiratory Rate 18 Blood Pressure 111/79 Pulse Oximetry 90 91 96 03/05/20 20:40 03/05/20 21:04 03/05/20 22:29 Temperature 36.8 C Pulse Rate 94 89 Respiratory Rate 20 20 Blood Pressure 104/70 Pulse Oximetry 96 96 96 03/05/20 22:30 03/06/20 00:00 03/06/20 04:00 Temperature 36.8 C 36.8 C Pulse Rate 89 79 65 Respiratory Rate 20 16 20 Blood Pressure 108/66 108/71 Pulse Oximetry 97 98 03/06/20 08:00 03/06/20 09:40 03/06/20 12:00 Temperature 36.7 C 36.6 C Pulse Rate 69 87 Respiratory Rate 18 16 Blood Pressure 110/75 107/76 Pulse Oximetry 96 96 96 Intake/Output Intake/Output: Intake & Output 03/03/20 03/04/20 03/05/20 03/06/20 23:59 23:59 23:59 23:59 Intake Total 2340 2510 2020 540 Output Total 1200 9991 772 4025 Balance 7802 666 6306 -910 Meds/Results Medications: Active Medications Generic Name Dose Route Start Last Admin Trade Name Freq PRN Reason Stop Dose Admin Acetaminophen 650 mg 03/01/20 07:57 Acetaminophen 325 Mg Tablet PO Q6H PRN Mild Pain (1-3) or Fever Albuterol 2 puff 02/29/20 17:03 03/05/20 14:14 Albuterol Sulfate (*Sp) Aerosol 1 Puff INHALATION 2 puff QIDRT PRN Administration Shortness Of Breath Amlodipine Besylate 5 mg 03/01/20 09:00 03/02/20 08:36 Amlodipine Besylate 5 Mg Tablet PO 5 mg DAILY [facility] Administration Apixaban 10 mg 03/05/20 21:00 03/06/20 09:44 Apixaban 5 Mg Tablet PO 10 mg Q12
--- NOTE | 2020-03-06 14:29 | PM.DS ---
DS: Admitting Diagnosis Admitting Diagnosis Admitting Diagnosis: COVID 19, Acute Respiratory failure with hypoxia DS: Discharge Diagnosis Discharge Diagnosis (1) Acute respiratory failure with hypoxia: Code(s): J96.01 - Acute respiratory failure with hypoxia Status: Acute Assessment and Plan: From CT chest still evidence of COVID pneumonia outside the window for remdesivir, I added steroids oral and tessalon perles Pt having wet cough greenish in color Pt to start levaquin add zofran as pt has sickness with ABX pt feels much better today 03/05/20 15:25 Mrs Crooks is a 65-year-old female with hypertension, mitral valve prolapse, and SVT status post cardiac ablation who presented to the emergency department via EMS from home for evaluation of shortness of breath. She had bunion surgery on January 25, 2020 and was laid up for a couple of weeks due to that. COVID positive on feb 14, BL PE, PHTN. Echo ordered. Pulmology consulted. Pt is on 2 liters of oxygen presently. Bp little soft, I will hold her BP medications. Overall, pt is feeling better, anticoagulation will be considered on thursday. Some complaints of constipation. Patient was seen by senior private client advisor suspect pulmonary emboli due to COVID and does not need and further workup for coagulopathy, recommending to switch over oral anticoagulation, also recommended to complete course of dexamethasone ten days. Currently patient is on Lovenox for anticoagulation, to further evaluate patient had a cardiac echo which is essentially normal did not show any right heart strain, patient states feeling somewhat better compared to when she arrived still is not able to take a deep breath, and requiring 1 L of oxygen per nasal cannula denies any fever or chills, will continue to monitor will do the home O2 eval if remains clinically stable will discharge the patient home tomorrow on Eliquis (2) Bilateral pulmonary embolism: Onset Date: ~02/2020 Code(s): I26.99 - Other pulmonary embolism without acute cor pulmonale Status: Acute Assessment and Plan: on lovenox BID and oxygen Large PE with clot burden, pulmology consulted for recommendations as Cardiology out of town Echo ordered continue to watch oxygenation overnite pt is presently on 2 liters Pulmology consulted Continue to oxygen Consider which oral anticiagulation on Thursday. (3) COVID-19: Code(s): U07.1 - COVID-19 Status: Acute Assessment and Plan: Feb 14 positive for covid (4) Hypertension: Code(s): I10 - Essential (primary) hypertension Status: Chronic Assessment and Plan: BP is bit low and we will hold HTN medications DS: Summary Hospital Course Reason for hospitalization: Chief complaint: Shortness of breath. Narrative: Kimberlee Crooks is a 65-year-old female with hypertension, mitral valve prolapse, and SVT status post cardiac ablation who presented to the emergency department earlier today via EMS from home for evaluation of shortness of breath. She had bunion surgery on January 25, 2020 and was laid up for a couple of weeks due to that. Just before she developed a cough and shortness of breath and she tested positive for COVID-19 on 02/13/20. It sounds like she had a rough couple of weeks but started feel somewhat better on Thursday, however since that time she notes increased and worsening shortness of breath in addition to the cough that she has had since her symptoms began. She also notes nausea and what sounds like posttussive emesis and subjective fever. D-dimer was significantly elevated on arrival to the emergency department she was found to have bilateral pulmonary emboli with moderate clot burden she is being admitted in this setting. She believes she had a DVT previously although it sounds like that may have been a superficial clot prior to varicose vein removal. Again she denies chest pain and has not had pleuritic pain or palpit
== END 2020-03-06 15:20 | disposition home or self-care (01) | DRG 177 ==
LOC: ANHED 14:21 → ANH3MEDSUR 17:41 → ANHIMU 18:37 → ANH3MEDSUR 03-02 00:51 → ANHIMU 03-12 15:44
PROVIDERS: Family Medicine; Admitting Provider Internal Medicine; Emergency Provider Emergency Medicine; Visit Provider Family Medicine
DX: U07.1 COVID-19 (principal); J12.89 Other viral pneumonia; I26.99 Other pulmonary embolism without acute cor pulmonale; J96.01 Acute respiratory failure with hypoxia; I10 Essential (primary) hypertension; J45.909 Unspecified asthma, uncomplicated; E78.5 Hyperlipidemia, unspecified; M19.90 Unspecified osteoarthritis, unspecified site; G62.9 Polyneuropathy, unspecified; Z96.653 Presence of artificial knee joint, bilateral; Z90.710 Acquired absence of both cervix and uterus; Z86.718 Personal history of other venous thrombosis and embolism
CPT/HCPCS: 36415; 71045; 71275; 80048; 80053; 83735; 84484; 85025; 85027; 85380; 85610; 85730; 86140; 87040; 93005; 93306; 94640; 96372; 96374; 99285; A9270; G0378; J1100; J1650; J8540; Q9967

== ENCOUNTER 2020-03-15 12:54 | Outpatient (CLI) | payer BC, SELFPAY ==
[2020-03-15 13:29] LABS: Add Urine Microscopic? YES; Appearance Urine Cloudy (Clear); Bilirubin Urine Negative (Negative); Blood Urine Negative (Negative); Color Urine Yellow (Yellow); Glucose Urine UA Negative (Negative); Ketones Urine Negative (Negative); Leukocyte Esterase Ur 2+ LEU/UL (NEGATIVE); Nitrate Urine Negative (Negative); Protein Urine Negative (Negative); Renal Epithelial Cells Urine Rare /hpf (None Seen); Specific Grav Ur 1.009 (1.001-1.035); Squamous Epithelial Cell Urine Many /hpf (Few); Transitional Epi Cells Urine Rare /hpf (None Seen); Urobilinogen Urine Negative mg/dL (<2.0); WBC Urine 21-30 /hpf (0-3)
== END 2020-03-15 12:55 | disposition home or self-care (01) ==
LOC: ANHLAB 12:54
DX: R31.9 Hematuria, unspecified (principal)
CPT/HCPCS: 81001; 87086; 87088

== ENCOUNTER 2020-03-18 22:22 | Inpatient (IN) | payer BC, SELFPAY ==
--- NOTE | ~2020-03-18 | XR_ITS ---
EXAMINATION: XR chest 1V portable DATE: 03/18/2020 23:29 INDICATION: Shortness of breath and cough TECHNIQUE: frontal view of the chest was obtained. COMPARISON: Chest radiograph dated 02/29/2020 FINDINGS: Small lung volumes. Slight improvement in the diffuse bilateral interstitial and patchy airspace opac ities throughout both lungs. No pleural effusion or pneumothorax. Heart size is normal. Cholecystecto my clips in the right upper quadrant. IMPRESSION: 1. Small lung volumes with improvement in the diffuse bilateral lung disease which could represent pn eumonia, pulmonary edema or some combination thereof. Reviewed, dictated and finalized at location A. RACT SEARCHER IMPRESSION: 1. Small lung volumes with improvement in the diffuse bilateral lung disease wh ich could represent pneumonia, pulmonary edema or some combination thereof.
--- NOTE | ~2020-03-18 | US_ITS ---
EXAMINATION: US venous doppler [facility] DATE: 03/19/2020 14:27 INDICATION: Pulmonary embolism. TECHNIQUE: Grayscale ultrasound images without and with compression and Doppler ultrasound images of the bilateral lower extremity veins were obtained. COMPARISON: None. FINDINGS: There is noncompressible, nonocclusive thrombus in the right greater saphenous vein outflow tract and right common femoral vein. There is additional noncompressible thrombus in the right soleal vein. Th e visualized portions of right profunda (deep) femoral vein, femoral vein, popliteal vein, posterior tibial veins, peroneal veins and gastrocnemius vein are patent. Noncompressible thrombus in one of the paired posterior tibial veins at the left calf. The second lef t posterior tibial vein is patent. The visualized portions of left common femoral vein, profunda femo ral vein, femoral vein, popliteal vein, peroneal veins, gastrocnemius vein and greater saphenous vein outflow are patent. IMPRESSION: 1. Bilateral deep venous thrombosis above and below the right knee at the greater saphenous vein out flow, right common femoral vein and right soleal vein, and below the left knee in one of the left pos terior tibial veins. Reviewed, dictated and finalized at location A. RVISOR DISPLAY FABRICATION IMPRESSION: 1. Bilateral deep venous thrombosis above and below the right knee at the grea ter saphenous vein outflow, right common femoral vein and right soleal vein, an d below the left knee in one of the left posterior tibial veins.
--- NOTE | ~2020-03-18 | CT_ITS ---
EXAMINATION: CTA chest PE protocol DATE: 03/20/2020 08:40 INDICATION: Increasing shortness of breath, new deep venous thrombosis. Known pulmonary embolus on No vember 18. TECHNIQUE: Computed tomography angiography (CTA) of the chest was performed with 100 mL Omnipaque-350 intravenous contrast timed to evaluate the pulmonary arteries. Coronal maximum intensity projection 3D-reconstructions were created by the technologist. Automated exposure control and iterative reconst ruction technique were employed. Exam dose: 381.57 mGy-cm total exam DLP. COMPARISON: 02/29/2020 CT pulmonary scan FINDINGS: There is residual embolism within the posteromedial right lower lobe; the previously report ed extensive bilateral pulmonary emboli have otherwise largely resolved. Cardiomegaly. No pericardial or pleural effusion. No thoracic aortic aneurysm or dissection. There are diffuse severe bilateral patchy groundglass infiltrates and consolidation, increased in sev erity since 02/29/2020, consistent with worsening Covid 19 pneumonia. Degenerative changes of the thoracic spine. No suspicious osteolytic or osteoblastic lesions. IMPRESSION: Improvement of pulmonary embolism with some residual in the posteromedial right lower lo be Severe diffuse bilateral pulmonary infiltrates, increased in severity since 02/29/2020 Reviewed, dictated and finalized at Location A. Reviewed, dictated and finalized at location A. R SECURITY ADMINISTRATOR IMPRESSION: Improvement of pulmonary embolism with some residual in the pack out operator omedial right lower lobe Severe diffuse bilateral pulmonary infiltrates, increased in severity since
[2020-03-18 22:27] VITALS: BP 131/94; PULSE 115; RESP 36; TEMP 36.3; O2SAT 96
[2020-03-18 22:43] VITALS: PULSE 105
--- NOTE | 2020-03-18 22:43 | ED.SOB ---
HPI - SOB/Dyspnea General Chief Complaint: Shortness of Breath/Dyspnea Stated Complaint: low 02 sats, sob, COVID + 02/10 Time Seen by Provider: 03/18/20 22:36 History of Present Illness HPI Narrative: Tested positive for COVID-19 just over 1 month ago. Found to have bilateral PEs. Discharged home on 03/09 on 2 liters O2. She feels that she has had some increasing PERALTA. Today she was concerned because coughed up a small blood clot. Her PCP told her to come get checked out. Related Data Home Medications Medication Instructions Recorded Confirmed ergocalciferol (vitamin D2) 50,000 unit DIRECTED 03/01/20 03/01/20 [Vitamin D2] montelukast [Singulair] 10 mg PO HS 03/01/20 03/01/20 Allergies Allergy/AdvReac Type Severity Reaction Status Date / Time bee venom protein (honey bee) Allergy Severe Anaphylaxis Verified 03/04/20 06:01 milk Allergy Severe Abdominal Verified 03/02/20 10:41 Pain nickel Allergy Severe Swelling Verified 03/02/20 10:41 spider venom Allergy Severe Anaphylaxis Verified 03/04/20 06:01 tetracycline Allergy Severe Unknown Verified 03/02/20 10:41 wheat Allergy Severe GI UPSET Verified 03/02/20 10:41 adhesive tape AdvReac Mild Redness of Verified 03/04/20 06:01 Skin amoxicillin AdvReac Mild Vomiting Verified 03/04/20 06:01 clarithromycin AdvReac Mild Vomiting Verified 03/04/20 06:01 codeine AdvReac Mild Nausea and Verified 03/04/20 06:01 Vomiting fentanyl AdvReac Mild Nausea and Verified 03/04/20 06:01 Vomiting Sulfa (Sulfonamide AdvReac Mild Vomiting Verified 03/04/20 06:01 Antibiotics) trimethoprim AdvReac Mild Vomiting Verified 03/04/20 06:01 ALL ANESTHETICS Allergy Severe NAUSEA/SEVERE Uncoded 03/01/20 09:13 VOMITING BEEF Allergy Severe GI UPSET Uncoded 03/01/20 09:13 NIGHTSHADE VEGETABLES Allergy Severe SWELLING Uncoded 03/01/20 09:13 AND INFLAMMATION IN JOINTS Pork Allergy Severe GI UPSET Uncoded 03/01/20 09:13 REFINED WHITE SUGAR Allergy Severe GI UPSET Uncoded 03/01/20 09:13 STAINLESS STEEL Allergy Severe UNKNOWN Uncoded 03/01/20 09:13 Review of Systems Review of Systems: All systems reviewed & are unremarkable except as noted in HPI and below Constitutional: Constitutional: Reports fatigue and Denies fever(s) ENT: Denies dizziness Cardiovascular: Cardiovascular: Denies chest pain Respiratory: Respiratory: Reports cough and Reports dyspnea Gastrointestinal: Gastrointestinal: Denies nausea Genitourinary: Genitourinary: Denies dysuria Neurologic: Denies weakness [facility] Past Medical History Medical History Asthma Diverticulitis Status post left colectomy. Hyperlipidemia Intolerant to statins secondary to muscle pain. Hypertension Mitral valve prolapse Osteoarthritis Peripheral neuropathy Surgical History Surgical History (Updated 03/05/20 @ 12:35 by Lizbeth Escobar MD) History of arthroscopic knee surgery Removal of what sounds like Mari's cyst bilaterally. History of bilateral carpal tunnel release History of bilateral knee replacement History of bladder repair surgery History of cardiac radiofrequency ablation (~2000) History of hysterectomy (~1981) History of partial colectomy (~12/18/10) Laparoscopic left colectomy for treatment of perforated diverticulitis. History of sinus surgery History of vascular surgery Varicose vein ablation. DVT in L femoral vein after the surgery 2011, subQ anticoagulant 6 weeks Family History Family History Father Hypertension Hypercholesterolemia Mother Hypertension Hypercholesterolemia ESRD (end stage renal disease) Other Heart disease Social History Social History Social History: Surrogate decision maker: Niharikabecca Haq (daughter) or Duran Newsome (son). Code status: Full code. Smoking status: Never smoker
[2020-03-18 22:45] VITALS: BP 127/85; PULSE 103; RESP 30; O2SAT 98
[2020-03-18 22:51] VITALS: O2SAT 98
[2020-03-18] MEDS: ALBUTEROL SULFATE NEB 2.5 MG/0.5 ML INH 5 MG INHALATION (22:57)
[2020-03-18] MEDS: IPRATROPIUM BR 0.02% INH SOLN 0.5 MG/2.5 ML VIAL INHALATION (22:57)
[2020-03-18 22:58] LABS: Basophils Absolute Auto 0.1 K/mm3 (0.0-0.1); Basophils Percent Auto 1.4 % (0.2-1.2); Eosinophils Absolute Auto 0.2 K/mm3 (0-0.3); Eosinophils Percent Auto 2.1 % (0-4.4); Hematocrit 36.5 % (37.0-47.0); Hemoglobin 11.9 g/dL (12.0-15.0); Immature Granulocyte Absolute 0.15 K/mm3 (0.00-0.031); Immature Granulocyte Percent A 1.8 % (0-0.5); Lymphocytes Absolute Auto 1.17 K/mm3 (0.9-3.2); Lymphocytes Percent Auto 14.4 % (18.3-44.2); Mean Corpuscular HGB Conc 32.6 g/dl (32-36); Mean Corpuscular Hemoglobin 29.5 pg (26-34); Mean Corpuscular Volume 90.6 fl (80-100); Mean Platelet Volume 9.1 fl (7.4-10.4); Monocytes Absolute Auto 0.9 K/mm3 (0.1-0.6); Monocytes Percent Auto 10.6 % (2.6-8.5); Neutrophils Absolute Auto 5.7 K/mm3 (1.3-6.7); Neutrophils Percent Auto 69.7 % (45.5-73.1); Platelet Count Result 394 k/mm3 (150-375); Red Blood Count 4.03 M/mm3 (4.2-5.4); Red Cell Distribution Width 12.7 % (11.5-14.5); White Blood Count 8.1 K/mm3 (4.5-10.0)
--- NOTE | 2020-03-18 23:01 | ECG_ITS ---
Measurements Intervals [place] Rate: 104 P: 22 MI: 154 QRS: -7 QRSD: 81 T: 5 QT: 304 QTc: 401 Interpretive Statements SINUS TACHYCARDIA DELAYED PRECORDIAL R/S TRANSITION VOLTAGE CRITERIA FOR LVH BORDERLINE T WAVE ABNORMALITY- INFERIOR LEADS BASELINE ARTIFACT- I, II, III, AVR, AVL, AVF, V1, V3, V5-V6 ABNORMAL ECG Electronically Signed On 03-19-2020 7:13:10 PINBALL MACHINE REPAIRER by Raphael Callaway D.O.
[2020-03-18 23:06] LABS: INR 1.2; Prothrombin Time 15.4 Seconds (11.1-14.7)
[2020-03-18 23:06] LABS: Base Excess ABG 0.8 mEq/l (+/-2.0); Fractional Inspired Oxygen 32 %; Oxygen Content ABG 17.3 %vol (16.0-22.0); Oxygen Saturation ABG 97.3 % (95.0-100.0); Oxyhemoglobin 96.1 % THb (90.0-100.0); PCO2 ABG 38.4 mmHg (35.0-45.0); PO2 ABG 93.2 mmHg (80.0-100.0); PO2 FiO2 Ratio Arterial Blood 2.91 %; Total Hemoglobin 12.7 g/dL (12.0-18.0); pH ABG 7.431 (7.350-7.450)
[2020-03-18 23:07] LABS: Device NASAL CANNULA; Modified Allen's Test Pass; Site Drawn LEFT RADIAL
[2020-03-18 23:07] LABS: Partial Thromboplastin Time 41.1 SECONDS (22.3-36.8)
[2020-03-18 23:08] LABS: Anion Gap 4 mmol/L (8-16); Blood Urea Nitrogen 6 mg/dL (7-17); Calcium 9.2 mg/dL (8.4-10.2); Carbon Dioxide 32 mmol/L (22-30); Chloride 102 mmol/L (98-107); Estimated CRCL calculation 73 ml/min; Estimated Glomerular Filt Rate > 60; Glucose 130 mg/dL (65-105); Potassium 3.8 mmol/L (3.4-5.0); Sodium 138 mmol/L (137-145)
[2020-03-18 23:28] LABS: Atypical Lymphocytes Present; Platelet Estimate Adequate (Adequate)
[2020-03-18 23:30] VITALS: BP 107/89; PULSE 104; RESP 25; O2SAT 100
[2020-03-19] VITALS (18 sets, daily range): BP systolic 109–118; BP diastolic 47–79; PULSE 97–130; RESP 20–34; TEMP 36.6–37.1; O2SAT 91–99; BMI 30.6
--- NOTE | 2020-03-19 | ECHO_ITS ---
Patient Info Name: Kimberlee Crooks Age: 65 years : 1955 Gender: Female Ht: 64 in Wt: 178 lbs BSA: 1.94 m2 HR: 125 bpm BP: 140 / 90 mmHg Heart Rhythm: Sinus Rhythm Technical Quality: Good Exam Date: 03/19/2020 12:36 PM Exam Location: [facility] Room: 323 Patient Status: Inpatient Admit Date: 03/19/2020 Staff Ordering Physician: Suzette Alves PA-C Chronic Care Nurse: Zenia Siu RDCS Attending Provider: Suzette Alves PA-C Referring Physician: Long OROZCO; Exam Type: CA echo doppler color flow Study Info Indications - PE PERALTA HYPOXIA Complete two-dimensional, color flow and Doppler transthoracic echocardiogram is performed. Summary 1. Complete two-dimensional, color flow and Doppler transthoracic echocardiogram is performed. 2. Left ventricular chamber dimension is normal. 3. Left ventricular systolic function is normal, estimated at 60-65%. 4. Right ventricular chamber dimension is mildly enlarged. 5. Right ventricular systolic function is normal. 6. Trivial jet of tricuspid insufficiency PA pressures are modestly elevated. Left Ventricle Left ventricular chamber dimension is normal. Left ventricular systolic function is normal, estimated at 60-65%. The left ventricular diastolic function is grade I diastolic dysfunction. Right Ventricle Right ventricular chamber dimension is mildly enlarged. Right ventricular systolic function is normal. Left Atria Left atrial chamber dimension is normal. Right Atria Right atrial chamber dimension is normal. Aortic Valve The aortic valve is normal. Pulmonic Valve The pulmonic valve is normal. Mitral Valve The mitral valve has normal leaflets. Tricuspid Valve The tricuspid valve leaflets are normal. There is trace tricuspid valve regurgitation. Pericardium/Pleural The pericardium appears normal. Aorta The aortic root size at the sinus of Valsalva is normal. Left Ventricular Outflow Tract Name Value Normal LVOT 2D LVOT Diameter 2.0 cm LVOT Doppler LVOT Peak Gradient 7 mmHg LVOT Mean Gradient 4 mmHg LVOT VTI 19 cm LVOT VTI/AV VTI Ratio 0.7 LVOT Stroke Volume 57 ml LVOT CO 16.7 l/min LVOT CI 8.6 l/min/m2 Pulmonic Valve Name Value Normal PV Doppler PV Peak Gradient 2 mmHg Mitral Valve Name Value Normal MV Doppler MV Decel [place] 487 cm/s2
--- NOTE | 2020-03-19 01:49 | ADMGEN ---
This patient, Kimberlee Crooks, was admitted to 3 [facility] Surg Room 323-01. Patient/family oriented to hospital policies and general routines including ID bracelet, bed and alarms, visiting hours, pain management, procedures, bathroom and other care routines, personal items, smoking policy, room service/diet, and visiting hours. Information on how to activate the Rapid Response Team has been discussed. Patient/Family are encouraged to report perceived risks to care and to ask questions if they do not understand what they are told or what they should do.
[2020-03-19] MEDS: IPRATROPIUM BR 0.02% INH SOLN 0.5 MG/2.5 ML VIAL INHALATION ×3 (09:18→21:15)
[2020-03-19] MEDS: ALBUTEROL SULFATE NEB 2.5 MG/0.5 ML INH 5 MG INHALATION ×3 (09:18→21:14)
[2020-03-19 12:21] LABS: Alveolar/Arterial O2 Gradient 118.2 mmHg; Base Excess ABG 4.2 mEq/l (+/-2.0); Carboxyhemoglobin 0.3 % THb (0-2.0); Device NASAL CANNULA; Fractional Inspired Oxygen 32 %; HCO3 ABG 28.3 mEq/l (22.0-26.0); Methemoglobin ABG 0.4 %THb (0-1.5); Oxygen Content ABG 15.4 %vol (16.0-22.0); Oxygen Saturation ABG 93.2 % (95.0-100.0); PCO2 ABG 40.3 mmHg (35.0-45.0); PO2 ABG 62.8 mmHg (80.0-100.0); PO2 FiO2 Ratio Arterial Blood 1.96 %; Reduced Hemoglobin 7.3 %THb (0-5.0); Site Drawn RIGHT BRACHIAL; Total Hemoglobin 11.9 g/dL (12.0-18.0); pH ABG 7.464 (7.350-7.450)
[2020-03-19] MEDS: FUROSEMIDE INJ 40 MG/4 ML VIAL 20 MG IV PUSH (12:23)
--- NOTE | 2020-03-19 12:37 | PM.IMHP ---
H&P: HPI History of Present Illness Date/Time: 03/19/20 12:37 Chief complaint: Acute on chronic respiratory failure, PE Narrative: Kimberlee Crooks is a 65 year old female with PMH significant for pulmonary embolism diagnosed 02/29/20, hx of DVT (1989 and 1994), COVID-19 (tested positive 02/13/20), asthma, hyperlipidemia, mitral valve prolapse, SVT s/p ablation, hypertension, and deep venous thrombosis who presented to the emergency department for the evaluation of hemoptysis and worsening dyspnea at rest and with exertion. She was hospitalized 02/29/20-03/06/20 for bilateral pulmonary embolism with moderate clot burden. There was no evidence of right heart strain on echocardiogram. She was discharged on 2 liters of oxygen per nasal cannula. She reports that she has been taking her eliquis as prescribed. Thursday, her dyspnea at rest and with exertion worsened. She also notes hacking and minimally productive cough. She had an episode of hemoptysis Thursday morning. She has noticed blood in the tissue when she blows her nose. She does report paroxysmal nocturnal dyspnea. She sleeps with the head of the bed elevated but this is not new for her. She denies associated fever and chills. She denies nausea, vomiting, and abdominal pain. She denies lower extremity edema. She is not having chest pain or pleuritic pain. She denies palpitations. She reports no significant change in bowel habits and denies melena and hematochezia. Review of Systems Review of Systems: Narrative: Constitutional: Denies fever, chills, fatigue, and appetite change. Denies weight change. Eyes: Denies vision change. No additional eye complaints. ENT: Denies change in hearing, nasal congestion, dysphagia, odynophagia, and sore throat. Reports that her nose has been dry and nasal drainage is occasionally bloody. Cardiovascular: As above. Respiratory: As above. Gastrointestinal: Denies nausea, vomiting, and abdominal pain. Denies melena and hematochezia. Last BM was 4 days ago. Genitourinary: Denies dysuria, frequency, urgency, and hesitancy. Denies hematuria. Musculoskeletal: Reports osteoarthritis and is s/p bilateral TKA without acute issues. Skin: Denies rashes, lesions, and wounds. Neurologic: Denies focal weakness, paresthesias, confusion, and speech change. Denies headache. Psychiatric: Denies mood change. Hematologic: On eliquis prior to admission for PE. Denies hx of clotting disorder. Reports hx of DVT x2. All systems reviewed & are unremarkable except as noted in HPI and below PMFSH Past Medical History Medical History (Updated 03/19/20 @ 15:29 by Suzette Alves PA-C) Asthma Deep venous thrombosis She reports a DVT prior to 1989 (cannot remember exact date) and 1994 Diverticulitis Status post left colectomy. Hyperlipidemia Intolerant to statins secondary to muscle pain. Hypertension Mitral valve prolapse Osteoarthritis Peripheral neuropathy Venous insufficiency Surgical History Surgical History History of arthroscopic knee surgery Removal of what sounds like Mari's cyst bilaterally. History of bilateral carpal tunnel release History of bilateral knee replacement History of bladder repair surgery History of cardiac radiofrequency ablation (~2000) History of hysterectomy (~1981) History of partial colectomy (~12/18/10) Laparoscopic left colectomy for treatment of perforated diverticulitis. History of sinus surgery History of vascular surgery Varicose vein ablation. DVT in L femoral vein after the surgery 2011, subQ anticoagulant 6 weeks Family History Family History Father Hypertension Hypercholesterolemia Mother Hypertension Hypercholesterolemia ESRD (end stage renal disease) Other Heart disease Social History Social History (Updated 03/19/20 @ 15:24 by Suzette Alves PA-C) Social History: Mrs. Crooks lives i
[2020-03-19 13:01] LABS: CRP 5.4 mg/dL (<1.0)
[2020-03-19 13:06] LABS: NT Pro B Type Natriuretic Pept 83 PG/ML (5-100)
[2020-03-19] MEDS: ENOXAPARIN 80 MG/0.8 ML SYRINGE SUB-Q ×2 (13:19→20:43)
[2020-03-19] MEDS: BENZONATATE 100 MG CAPSULE 200 MG PO ×2 (13:19→17:41)
--- NOTE | 2020-03-19 16:25 | ECG_ITS ---
Measurements Intervals [place] Rate: 119 P: 24 RI: 154 QRS: -3 QRSD: 86 T: 10 QT: 309 QTc: 435 Interpretive Statements SINUS TACHYCARDIA DELAYED PRECORDIAL R/S TRANSITION VOLTAGE CRITERIA FOR LVH BORDERLINE T WAVE ABNORMALITY- INFERIOR LEADS BASELINE ARTIFACT- I, III, AVR, AVL, AVF ABNORMAL ECG Electronically Signed On 03-19-2020 16:52:16 KNUCKLE BENDER by Raphael Callaway D.O.
--- NOTE | 2020-03-19 16:56 | PM.CNPUL ---
Assessment and Plan Assessment and plan (1) Bilateral pulmonary embolism: Onset Date: ~02/2020 Code(s): I26.99 - Other pulmonary embolism without acute cor pulmonale Status: Acute Assessment and Plan: Had initial PE on Mar 04 admission, legs were not examined on the last admission; she now has lower extremity DVT with increased dyspneas; she may have had old lower extremity clot with persistent clot burden, or she may have recurrent clot formation . (2) COVID-19: Code(s): U07.1 - COVID-19 Status: Acute (3) Acute respiratory failure with hypoxia: Code(s): J96.01 - Acute respiratory failure with hypoxia Status: Acute Assessment and Plan: She has increased dyspnea with new DVT discovered this admission with bilateral PE from Feb 28 Now has new RV enlargement while taking Eliquis; this is concerning for recurrent PE as she had a normal echo when she first had the PEs 1. repeat CTA-see what clot burden is 2. Add empiric antibiotics for possible pneumonia; can stop if the CTA does not show infiltrates - Zosyn and azithromycin 3. Incentive spirometer 4. Treat constipation = miralax and colace 5. oral steroids for asthma; little wheezing a this time. History of Present Illness History of Present Illness Consult date: 04/16/20 Requesting physician: Suzette Alves PA-C Chief complaint: Acute on chronic respiratory failure, PE Narrative: NEW: Kimberlee Crooks is a 65 yo female who I saw in consultation Mar 04 for bilateral PE without cor pulmonale. She improved, went home, returned now has RV enlargement. She has a cough and mild hemoptysis. She is not in distress. She has a history of asthma. She had left foot surgery Oct 14, was sedentary afterwards, developed increased shortness of breath Feb 10; Feb 12 she tested positive for COVID. She developed a fever, worsening shortness of breath and she presented to the emergency department March 01 with bilateral pulmonary emboli associated with COVID pneumonia. Her echo was normal during that admission. Sodium was 134, and no lower extremity dopplers were obtained. She required as much as 5 L/min during her stay, and was weaned to 1 L/min. Review of Systems Review of Systems: All systems reviewed & are unremarkable except as noted in HPI and below PMFSH Past Medical History Medical History (Updated 03/29/20 @ 00:00 by Zora Datommie) Asthma Deep venous thrombosis She reports a DVT prior to 1989 (cannot remember exact date) and 1994 Diverticulitis Status post left colectomy. Hyperlipidemia Intolerant to statins secondary to muscle pain. Hypertension Mitral valve prolapse Osteoarthritis Peripheral neuropathy Venous insufficiency Surgical History Surgical History History of arthroscopic knee surgery Removal of what sounds like Mari's cyst bilaterally. History of bilateral carpal tunnel release History of bilateral knee replacement History of bladder repair surgery History of cardiac radiofrequency ablation (~2000) History of hysterectomy (~1981) History of partial colectomy (~12/18/10) Laparoscopic left colectomy for treatment of perforated diverticulitis. History of sinus surgery History of vascular surgery Varicose vein ablation. DVT in L femoral vein after the surgery 2011, subQ anticoagulant 6 weeks Family History Family History Father Hypertension Hypercholesterolemia Mother Hypertension Hypercholesterolemia ESRD (end stage renal disease) Other Heart disease Social History Social History (Updated 03/19/20 @ 15:24 by Suzette Alves PA-C) Social History: Mrs. Crooks lives in [place] with a friend. 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
[2020-03-19] MEDS: MONTELUKAST SODIUM 10 MG TABLET PO (20:44)
[2020-03-19] MEDS: DOCUSATE SODIUM 100 MG CAPSULE PO (20:44)
[2020-03-20] VITALS (16 sets, daily range): BP systolic 105–117; BP diastolic 71–78; PULSE 88–125; RESP 18–38; TEMP 36.8–37.2; O2SAT 90–95
[2020-03-20] MEDS: ALBUTEROL SULFATE NEB 2.5 MG/0.5 ML INH 5 MG INHALATION ×2 (01:33→08:41)
[2020-03-20] MEDS: IPRATROPIUM BR 0.02% INH SOLN 0.5 MG/2.5 ML VIAL INHALATION ×3 (01:33→14:51)
[2020-03-20 06:48] LABS: Basophils Absolute Auto 0.1 K/mm3 (0.0-0.1); Basophils Percent Auto 1.3 % (0.2-1.2); Eosinophils Absolute Auto 0.1 K/mm3 (0-0.3); Eosinophils Percent Auto 1.2 % (0-4.4); Hematocrit 33.4 % (37.0-47.0); Hemoglobin 10.9 g/dL (12.0-15.0); Immature Granulocyte Absolute 0.03 K/mm3 (0.00-0.031); Immature Granulocyte Percent A 0.4 % (0-0.5); Lymphocytes Absolute Auto 1.06 K/mm3 (0.9-3.2); Lymphocytes Percent Auto 14.3 % (18.3-44.2); Mean Corpuscular HGB Conc 32.6 g/dl (32-36); Mean Corpuscular Hemoglobin 29.9 pg (26-34); Mean Corpuscular Volume 91.8 fl (80-100); Mean Platelet Volume 9.5 fl (7.4-10.4); Monocytes Absolute Auto 0.7 K/mm3 (0.1-0.6); Monocytes Percent Auto 9.7 % (2.6-8.5); Neutrophils Absolute Auto 5.4 K/mm3 (1.3-6.7); Neutrophils Percent Auto 73.1 % (45.5-73.1); Platelet Count Result 349 k/mm3 (150-375); Red Blood Count 3.64 M/mm3 (4.2-5.4); White Blood Count 7.4 K/mm3 (4.5-10.0)
[2020-03-20 07:12] LABS: Anion Gap 3 mmol/L (8-16); Blood Urea Nitrogen 9 mg/dL (7-17); Calcium 8.9 mg/dL (8.4-10.2); Carbon Dioxide 34 mmol/L (22-30); Chloride 99 mmol/L (98-107); Creatine Kinase < 20 U/L (30-135); Estimated CRCL calculation 84 ml/min; Estimated Glomerular Filt Rate > 60; Glucose 140 mg/dL (65-105); Lactate Dehydrogenase 956 U/L (313-618); Potassium 3.5 mmol/L (3.4-5.0); Sodium 136 mmol/L (137-145)
[2020-03-20] MEDS: ENOXAPARIN 80 MG/0.8 ML SYRINGE SUB-Q (09:52)
[2020-03-20] MEDS: BENZONATATE 100 MG CAPSULE 200 MG PO ×3 (09:53→17:56)
[2020-03-20] MEDS: predniSONE 20 MG TABLET 40 MG PO (09:53)
[2020-03-20] MEDS: DOCUSATE SODIUM 100 MG CAPSULE PO ×2 (09:53→20:37)
--- NOTE | 2020-03-20 12:48 | PM.PNPUL ---
Progress Note: A&P Assessment and Plan (1) Acute on chronic respiratory failure: Code(s): J96.20 - Acute and chronic respiratory failure, unspecified whether with hypoxia or hypercapnia Status: Acute Assessment and Plan: Her symptoms are worse likely from worsening bilateral inflammation. This is a late inflammatory phase of COVID-19 - Prednisone 40 mg daily is equivalent to Dexamethasone 6 mg daily so I would continue either or for 10 days in an effort to minimize permanent lung damage (2) Asthma: Code(s): J45.909 - Unspecified asthma, uncomplicated Status: Acute (3) COVID-19: Code(s): U07.1 - COVID-19 Status: Acute Assessment and Plan: I see no benefit from Remedesivir at this stage as she is past the infectious stage (4) Pulmonary embolism: Code(s): I26.99 - Other pulmonary embolism without acute cor pulmonale Status: Acute Assessment and Plan: Clot burden is the same and not likely contributing to current symptoms. PE is expected to remain on imaging for up to 4-6 weeks. It is unlikely that this is a NOAC failure and I would restart Eliquis 5 mg PO bid at your leisure. Subjective Date/time seen: 03/20/20 12:48 Interval history: 65 y/o with Asthma who developed COVID a few weeks ago was not hypoxic at rest and hence was not treated with Remdesivir or Steroids comes back in with increased dyspenea. CT chest was repeated and shows increased bilateral ground glass opacities when compared to CT from three weeks ago suggestive of inflammation. The clot burden does not seem to have changed and she still has a RLL subsegment PE which we would expect to see in this time period and may take a few more weeks to dissolve. She was started on prednisone 40 mg daily daily yesterdy by Dr. Escobar and is starting to feel better Review of Systems Review of Systems: All systems reviewed & are unremarkable except as noted in HPI and below Exam Const: General: cooperative, healthy appearing, comfortable, no acute distress, well developed, alert, awake and Physically active Nutritional Appearance: well nourished and overweight Orientation/consciousness: oriented to person, oriented to place, oriented to time and patient oriented x3 Limitations: no limitations HENMT: Head: normal to inspection, normocephalic and atraumatic Eyes: General: appearance normal, both eyes and all related structures Neck: Neck: normal visual inspection, trachea midline and supple Resp: Effort & Inspection: normal respiratory effort Auscultation: crackles (fine diffuse crackles throughout both lung mistry ) bilateral and diminished lung sounds Cardio: Jugular venous distension: no JVD Rate: regular rate Rhythm: regular rhythm Heart sounds: S1 normal heart sound present and S2 normal heart sound present GI: Inspection: normal to inspection Auscultation: normal bowel sounds Neuro: General: oriented to person, oriented to place, oriented to time and patient oriented x3 Cognition (Neuro): normal cognition Speech: normal speech Extrem: General: no clubbing, cyanosis or edema Psych: Appearance: grossly normal and well kempt Mental Status: mental status grossly normal Objective Data Vital Signs Vital Signs: Vital Signs - 24 hr 03/19/20 14:00 03/19/20 14:39 03/19/20 16:00 Temperature 36.6 C Pulse Rate 117 H 120 H Respiratory Rate 24 H 32 H Blood Pressure 114/79 Pulse Oximetry 95 03/19/20 20:00 03/19/20 21:15 03/19/20 22:43 Temperature Pulse Rate 113 H 102 H Respiratory Rate 20 Blood Pressure Pulse Oximetry 92 92 03/19/20 23:24 03/20/20 00:00 03/20/20 01:34 Temperature 37.1 C Pulse Rate 103 H 96 91 Respiratory Rate 20 18 Blood Pressure 109/76 Pulse Oximetry 94 03/20/20 03:44 03/20/20 04:00 03/20/20 08:00 Temperature 36.9 C Pulse Rate 98 96 93 Respiratory Rate 20 Blood Pressure 117/78 Pulse Oximetry 95 03/20/20 08:44 03/20/20
--- NOTE | 2020-03-20 14:09 | PM.IMPN ---
Progress Note: A&P Assessment and Plan (1) Acute on chronic respiratory failure: Code(s): J96.20 - Acute and chronic respiratory failure, unspecified whether with hypoxia or hypercapnia Status: Acute Assessment and Plan: Multifactorial secondary to bilateral pulmonary embolism, residual effects of COVID-19 infection with worsening inflammation, and asthma. BNP is wnl. She is on 3L O2 per nasal cannula at home following COVID pneumonia. Pulmonology has been consulted and recommendations are appreciated Supplemental O2 as needed with goal saturation 90% or above. Wean to goal. Continue 40 mg prednisone daily for 10 days to reduce inflammation from late effects of COVID-19. Continue bronchodilators and incentive spirometer. Continue treatment of PE, plan as below She was started on IV zosyn and azithromycin for possible superimposed bacterial pneumonia. CXR and CTA showed bilateral infiltrates, unclear if secondary to viral vs bacterial pneumonia. Will continue with IV antibiotics at this time and appreciate further recommendations from pulmonology. (2) Bilateral pulmonary embolism: Onset Date: ~02/2020 Code(s): I26.99 - Other pulmonary embolism without acute cor pulmonale Status: Acute Assessment and Plan: Diagnosed 02/29/20. Repeat CTA performed today shows residual embolism within the posteromedial right lower lobe and radiologist notes that previous extensive bilateral PEs have largely resolved. She has occasional episodes of sinus tachycardia and tachypnea. No chest pain. She was started on therapeutic Lovenox upon admission. Will plan to transition back to her oral Eliquis 5 mg bid tonight. Supplemental O2 as above. Continue with monitoring on telemetry overnight. (3) DVT, bilateral lower limbs: Code(s): I82.403 - Acute embolism and thrombosis of unspecified deep veins of lower extremity, bilateral Status: Acute Assessment and Plan: Venous Doppler showed bilateral DVT above and below the right knee and below the left knee. No prior venous Doppler obtained upon diagnosis of initial PE. it is highly likely that DVT is secondary to prolonged immobility s/p bunion surgery on 01/25/20 after which she was non-weightbearing for 2 weeks as well as hypercoagulable state from COVID-19. Transition to Eliquis as above. (4) COVID-19: Code(s): U07.1 - COVID-19 Status: Acute Assessment and Plan: She tested positive 02/13/20. Suspect symptoms are related to late inflammatory changes from COVID-19. Continue prednisone as above. No benefit from Remdesivir at this juncture given duration of symptoms. Supportive care as needed with bronchodilators and antitussives. (5) Asthma: Code(s): J45.909 - Unspecified asthma, uncomplicated Status: Acute Assessment and Plan: Not in acute exacerbation. No wheezing noted on exam. Continue nebulized bronchodilators, singulair, and pulmicort (6) Hypertension: Code(s): I10 - Essential (primary) hypertension Status: Chronic Assessment and Plan: She is not currently on any antihypertensives at this time. She was previously on amlodipine which has been discontinued. BP has been well controlled. Last blood pressure was 117/78. Monitor blood pressure daily. Subjective Date/time seen: 03/20/20 14:09 Interval history: date of service: 03/20/2020 Kimberlee Crooks is a 65-year-old female with a history of DVT, HTN, asthma, and recent COVID-19 pneumonia who is seen in follow-up for pulmonary embolism. She reports that she is feeling improved today. Her shortness of breath at rest has improved, although she is still endorsing significant PERALTA. She reports infrequent wheezing. She is having coughing fits occasionally and reports a dry cough. Denies chest pain, orthopnea, PND, or palpitations. She denies nausea or vomiting, dizziness, lightheadedness, o
[2020-03-20] MEDS: ALBUTEROL SULFATE NEB 2.5 MG/0.5 ML INH INHALATION ×2 (14:51→20:31)
[2020-03-20] MEDS: BUDESONIDE RESPULE NEB 0.5 MG/2 ML AMP INHALATION (20:31)
[2020-03-20] MEDS: APIXABAN 5 MG TABLET PO (20:37)
[2020-03-20] MEDS: MONTELUKAST SODIUM 10 MG TABLET PO (20:37)
[2020-03-21] VITALS (16 sets, daily range): BP systolic 108–129; BP diastolic 68–85; PULSE 92–116; RESP 18–30; TEMP 36.6–37.1; O2SAT 95–99
[2020-03-21] MEDS: IPRATROPIUM BR 0.02% INH SOLN 0.5 MG/2.5 ML VIAL INHALATION ×4 (02:45→21:09)
[2020-03-21] MEDS: ALBUTEROL SULFATE NEB 2.5 MG/0.5 ML INH INHALATION ×3 (02:45→14:53)
[2020-03-21 07:00] LABS: Hematocrit 31.5 % (37.0-47.0); Hemoglobin 10.4 g/dL (12.0-15.0); Mean Corpuscular Hemoglobin 30.1 pg (26-34); Mean Corpuscular Volume 91.3 fl (80-100); Mean Platelet Volume 9.3 fl (7.4-10.4); Platelet Count Result 338 k/mm3 (150-375); Red Blood Count 3.45 M/mm3 (4.2-5.4); Red Cell Distribution Width 12.8 % (11.5-14.5); White Blood Count 7.7 K/mm3 (4.5-10.0)
[2020-03-21 07:17] LABS: Alanine Aminotransferase 15 U/L (4-35); Albumin Level 3.1 g/dL (3.5-5.1); Alkaline Phosphatase 69 U/L (38-126); Anion Gap 1 mmol/L (8-16); Aspartate Amino Transferase 28 U/L (14-36); Bilirubin,Total 0.5 mg/dL (0.2-1.3); Blood Urea Nitrogen 11 mg/dL (7-17); CRP 3.5 mg/dL (<1.0); Carbon Dioxide 35 mmol/L (22-30); Chloride 99 mmol/L (98-107); Estimated CRCL calculation 84 ml/min; Estimated Glomerular Filt Rate > 60; Glucose 123 mg/dL (65-105); Potassium 3.6 mmol/L (3.4-5.0); Sodium 135 mmol/L (137-145)
[2020-03-21] MEDS: DOCUSATE SODIUM 100 MG CAPSULE PO ×2 (08:58→21:20)
[2020-03-21] MEDS: APIXABAN 5 MG TABLET PO ×2 (08:58→21:21)
[2020-03-21] MEDS: predniSONE 20 MG TABLET 40 MG PO (08:58)
[2020-03-21] MEDS: BENZONATATE 100 MG CAPSULE 200 MG PO ×3 (08:59→17:53)
[2020-03-21] MEDS: BUDESONIDE RESPULE NEB 0.5 MG/2 ML AMP INHALATION ×2 (09:50→21:09)
--- NOTE | 2020-03-21 14:13 | PM.IMPN ---
Progress Note: A&P Assessment and Plan (1) Acute on chronic respiratory failure: Code(s): J96.20 - Acute and chronic respiratory failure, unspecified whether with hypoxia or hypercapnia Status: Acute Assessment and Plan: Multifactorial secondary to bilateral pulmonary embolism, residual effects of COVID-19 infection with worsening inflammation, and asthma. BNP is wnl. She is on 3L O2 per nasal cannula at home following COVID pneumonia. Pulmonology has been consulted and recommendations are appreciated Supplemental O2 as needed with goal saturation 90% or above. Wean to goal. Continue 40 mg prednisone daily for 10 days to reduce inflammation from late effects of COVID-19. Started 03/20/20. Continue bronchodilators and incentive spirometer. Will transition to xopenex in light of sinus tach which may be due to scheduled albuterol. Continue treatment of PE, plan as below She was started on IV zosyn and azithromycin for possible superimposed bacterial pneumonia. CXR and CTA showed bilateral infiltrates, unclear if secondary to viral vs bacterial pneumonia. Will continue with IV antibiotics at this time and appreciate further recommendations from pulmonology. (2) Bilateral pulmonary embolism: Onset Date: ~02/2020 Code(s): I26.99 - Other pulmonary embolism without acute cor pulmonale Status: Acute Assessment and Plan: Diagnosed 02/29/20. Repeat CTA performed today shows residual embolism within the posteromedial right lower lobe and radiologist notes that previous extensive bilateral PEs have largely resolved. She has occasional episodes of sinus tachycardia and tachypnea. No chest pain. She was started on therapeutic Lovenox upon admission and has been transitioned back to her oral Eliquis 5 mg bid tonight. Supplemental O2 as above. Continue with monitoring on telemetry overnight. (3) DVT, bilateral lower limbs: Code(s): I82.403 - Acute embolism and thrombosis of unspecified deep veins of lower extremity, bilateral Status: Acute Assessment and Plan: Venous Doppler showed bilateral DVT above and below the right knee and below the left knee. No prior venous Doppler obtained upon diagnosis of initial PE. it is highly likely that DVT is secondary to prolonged immobility s/p bunion surgery on 01/25/20 after which she was non-weightbearing for 2 weeks as well as hypercoagulable state from COVID-19. Continue Eliquis as above. (4) COVID-19: Code(s): U07.1 - COVID-19 Status: Acute Assessment and Plan: She tested positive 02/13/20. Suspect symptoms are related to late inflammatory changes from COVID-19. Continue prednisone as above. No benefit from Remdesivir at this juncture given duration of symptoms. Supportive care as needed with bronchodilators and antitussives. (5) Asthma: Code(s): J45.909 - Unspecified asthma, uncomplicated Status: Acute Assessment and Plan: Not in acute exacerbation. No wheezing noted on exam. Continue nebulized bronchodilators, singulair, and pulmicort (6) Hypertension: Code(s): I10 - Essential (primary) hypertension Status: Chronic Assessment and Plan: She is not currently on any antihypertensives at this time. She was previously on amlodipine which has been discontinued. BP has been well controlled. Last blood pressure was 129/83. Monitor blood pressure daily. (7) Generalized weakness: Code(s): R53.1 - Weakness Status: Acute Assessment and Plan: Patient endorses feeling weak, which is most likely due to deconditioning from illness and decreased mobility. Appreciate PT and OT eval check TSH, B12, and folate Subjective Date/time seen: 03/21/20 14:13 Interval history: date of service: 03/21/2020 Kimberlee Crooks is a 65-year-old female with a history of DVT, HTN, asthma, and recent COVID-19 pneumonia who is seen in foll
[2020-03-21] MEDS: MONTELUKAST SODIUM 10 MG TABLET PO (21:20)
--- NOTE | 2020-03-21 21:37 | PM.PNPUL ---
Progress Note: A&P Assessment and Plan (1) Bilateral pulmonary embolism: Onset Date: ~02/2020 Code(s): I26.99 - Other pulmonary embolism without acute cor pulmonale Status: Acute (2) COVID-19: Code(s): U07.1 - COVID-19 Status: Acute Assessment and Plan: I see no benefit from Remedesivir at this stage as she is past the infectious stage (3) Acute respiratory failure with hypoxia: Code(s): J96.01 - Acute respiratory failure with hypoxia Status: Acute (4) Asthma: Code(s): J45.909 - Unspecified asthma, uncomplicated Status: Acute (5) Acute on chronic respiratory failure: Code(s): J96.20 - Acute and chronic respiratory failure, unspecified whether with hypoxia or hypercapnia Status: Acute Assessment and Plan: Her symptoms are worse likely from worsening bilateral inflammation. This is a late inflammatory phase of COVID-19 - Prednisone 40 mg daily is equivalent to Dexamethasone 6 mg daily so I would continue either or for 10 days in an effort to minimize permanent lung damage (6) Pulmonary embolism: Code(s): I26.99 - Other pulmonary embolism without acute cor pulmonale Status: Acute Assessment and Plan: Clot burden is the same and not likely contributing to current symptoms. PE is expected to remain on imaging for up to 4-6 weeks. It is unlikely that this is a NOAC failure and I would restart Eliquis 5 mg PO bid at your leisure. Subjective Date/time seen: 03/21/20 21:37 Interval history: Feeling better since admission. Still short of breath with minimal exertion Review of Systems Review of Systems: All systems reviewed & are unremarkable except as noted in HPI and below Exam Const: General: cooperative, healthy appearing, comfortable, no acute distress, well developed, alert, awake and Physically active Nutritional Appearance: well nourished and overweight Orientation/consciousness: oriented to person, oriented to place, oriented to time and patient oriented x3 Limitations: no limitations HENMT: Head: normal to inspection, normocephalic and atraumatic Eyes: General: appearance normal, both eyes and all related structures Neck: Neck: normal visual inspection, trachea midline and supple Resp: Effort & Inspection: normal respiratory effort Auscultation: crackles (fine diffuse crackles throughout both lung mistry ) bilateral and diminished lung sounds Cardio: Jugular venous distension: no JVD Rate: regular rate Rhythm: regular rhythm Heart sounds: S1 normal heart sound present and S2 normal heart sound present GI: Inspection: normal to inspection Auscultation: normal bowel sounds Neuro: General: oriented to person, oriented to place, oriented to time and patient oriented x3 Cognition (Neuro): normal cognition Speech: normal speech Extrem: General: no clubbing, cyanosis or edema Psych: Appearance: grossly normal and well kempt Mental Status: mental status grossly normal Objective Data Vital Signs Vital Signs: Vital Signs - 24 hr 03/20/20 22:00 03/21/20 00:00 03/21/20 02:47 Temperature 36.8 C Pulse Rate 112 H 110 H 92 Respiratory Rate 20 18 Blood Pressure 105/71 Pulse Oximetry 94 03/21/20 04:00 03/21/20 05:00 03/21/20 08:00 Temperature 37.1 C Pulse Rate 109 H 99 92 Respiratory Rate 20 18 Blood Pressure 108/68 Pulse Oximetry 96 99 03/21/20 09:50 03/21/20 10:00 03/21/20 10:10 Temperature Pulse Rate 92 94 94 Respiratory Rate 18 18 18 Blood Pressure Pulse Oximetry 99 96 03/21/20 12:00 03/21/20 14:00 03/21/20 14:53 Temperature 37.0 C Pulse Rate 102 H 116 H 111 H Respiratory Rate 30 H 18 Blood Pressure 129/83 Pulse Oximetry 95 03/21/20 15:03 03/21/20 16:00 03/21/20 20:49 Temperature 36.6 C Pulse Rate 101 H 114 H 108 H Respiratory Rate 18 22 H Blood Pressure 121/85 Pulse Oximetry 96 03/21/20 21:09 Temperature Pulse Rate 102 H Respiratory R
[2020-03-22] VITALS (13 sets, daily range): BP systolic 107–116; BP diastolic 61–72; PULSE 90–106; RESP 18–22; TEMP 36.4–37; O2SAT 85–98
[2020-03-22] MEDS: IPRATROPIUM BR 0.02% INH SOLN 0.5 MG/2.5 ML VIAL INHALATION ×2 (02:46→08:02)
[2020-03-22 06:50] LABS: Hematocrit 31.8 % (37.0-47.0); Hemoglobin 10.2 g/dL (12.0-15.0); Mean Corpuscular HGB Conc 32.1 g/dl (32-36); Mean Corpuscular Volume 93.5 fl (80-100); Mean Platelet Volume 9.6 fl (7.4-10.4); Platelet Count Result 350 k/mm3 (150-375); Red Cell Distribution Width 12.8 % (11.5-14.5); White Blood Count 9.1 K/mm3 (4.5-10.0)
[2020-03-22 06:53] LABS: Anion Gap 4 mmol/L (8-16); Blood Urea Nitrogen 16 mg/dL (7-17); Carbon Dioxide 33 mmol/L (22-30); Chloride 100 mmol/L (98-107); Estimated CRCL calculation 84 ml/min; Estimated Glomerular Filt Rate > 60; Glucose 116 mg/dL (65-105); Potassium 4.1 mmol/L (3.4-5.0); Sodium 137 mmol/L (137-145)
[2020-03-22 07:45] LABS: Thyroid Stimulating Hormone Reflex 0.076 uIU/mL (0.465-4.68)
[2020-03-22 07:55] LABS: Folic Acid 10.3 ng/mL (2.76->20)
[2020-03-22] MEDS: BUDESONIDE RESPULE NEB 0.5 MG/2 ML AMP INHALATION (08:02)
[2020-03-22] MEDS: BENZONATATE 100 MG CAPSULE 200 MG PO ×2 (08:29→12:59)
[2020-03-22] MEDS: APIXABAN 5 MG TABLET PO (08:29)
[2020-03-22] MEDS: predniSONE 20 MG TABLET 40 MG PO (08:30)
[2020-03-22] MEDS: DOCUSATE SODIUM 100 MG CAPSULE PO (08:30)
[2020-03-22 08:54] LABS: Free T4 Free Thyroxine Reflex 1.43 ng/dL (0.78-2.19)
[2020-03-22 09:42] LABS: Total Triiodothyronine (T3) 1.17 NG/ML (0.97-1.69)
--- NOTE | 2020-03-22 13:47 | HOMEO2EVAL ---
Home Oxygen Evaluation RC: Home Oxygen (O2) Evaluation Start: 03/22/20 08:24 Freq: ONCE Status: Active Protocol: RPE Activity Type Activity Date Activity User E-Sign Co-Sign Detail Recorded Client Recorded Date Recorded By Document 03/22/20 11:00 RENATO [email or web address] 03/22/20 13:46 RENATO Document 03/22/20 11:05 RENATO [email or web address] 03/22/20 13:46 RENATO Document 03/22/20 11:07 RENATO [email or web address] 03/22/20 13:46 RENATO Document 03/22/20 11:10 RENATO [email or web address] 03/22/20 13:46 RENATO Document 03/22/20 11:13 RENATO [email or web address] 03/22/20 13:46 RENATO Document 03/22/20 11:20 RENATO [email or web address] 03/22/20 13:46 RENATO 03/22/20 03/22/20 03/22/20 11:00 11:05 11:07 Home O2 Evaluation Test Phase Resting Resting Resting Oxygen Delivery Room Air Nasal Cannula Nasal Cannula Oxygen Flow Rate (L/min) 2 3 Pulse Oximetry (90-100 %) 85 L 87 L 90 Home Oxygen Evaluation Comments Treatment Charges O2 Evaluation 03/22/20 03/22/20 03/22/20 11:10 11:13 11:20 Home O2 Evaluation Test Phase Exercise Exercise Resting Oxygen Delivery Nasal Cannula Nasal Cannula Nasal Cannula Oxygen Flow Rate (L/min) 3 4 3 Pulse Oximetry (90-100 %) 85 L 89 L 92 Home Oxygen Evaluation Comments pt requires 3l at rest and 4l with activity Treatment Charges
--- NOTE | 2020-03-22 13:47 | PCRCNOTE ---
Home o2 eval done, Pt requires 3 liters rest and 4 liters exertion. Pt currently has [facility] home O2. Will bring her another tank for transport home and fax over copy of eval to [facility].
--- NOTE | 2020-03-22 13:49 | PCRCNOTE ---
Home O2 needs have increased since prior admission.
--- NOTE | 2020-03-22 14:32 | PM.DS ---
DS: Admitting Diagnosis Admitting Diagnosis Admitting Diagnosis: Acute on chronic respiratory failure, PE DS: Discharge Diagnosis Discharge Diagnosis (1) Acute on chronic respiratory failure: Code(s): J96.20 - Acute and chronic respiratory failure, unspecified whether with hypoxia or hypercapnia Status: Acute Assessment and Plan: Multifactorial secondary to bilateral pulmonary embolism, residual effects of COVID-19 infection with worsening inflammation, and asthma. BNP is wnl. She has been on 3L O2 per nasal cannula at home following COVID pneumonia. She was seen in consultation by pulmonology. She was started on prednisone which she will continue for 10 days to reduce inflammation from late effects of COVID-19. She was initially started on IV Zosyn and azithromycin for possible superimposed bacterial pneumonia based on imaging, however upon discussion with Dr. Mena, this was felt to be secondary to inflammatory changes and IV antibiotics were discontinued. She had a repeat home O2 trial which indicated continued 3L O2 with rest and 4L O2 with exertion. (2) Bilateral pulmonary embolism: Onset Date: ~02/2020 Code(s): I26.99 - Other pulmonary embolism without acute cor pulmonale Status: Acute Assessment and Plan: Diagnosed 02/29/20. Repeat CTA performed 03/20 showed residual embolism within the posteromedial right lower lobe and radiologist notes that previous extensive bilateral PEs have largely resolved. she was started on therapeutic Lovenox upon admission and was transition back to her oral Eliquis 5 mg b.i.d. which she will continue as an outpatient. (3) DVT, bilateral lower limbs: Code(s): I82.403 - Acute embolism and thrombosis of unspecified deep veins of lower extremity, bilateral Status: Acute Assessment and Plan: Venous Doppler showed bilateral DVT above and below the right knee and below the left knee. No prior venous Doppler obtained upon diagnosis of initial PE. It is highly likely that DVT is secondary to prolonged immobility s/p bunion surgery on 01/25/20 after which she was non-weightbearing for 2 weeks as well as hypercoagulable state from COVID-19. Continue Eliquis as above. (4) COVID-19: Code(s): U07.1 - COVID-19 Status: Acute Assessment and Plan: She tested positive 02/13/20. Suspect ongoing respiratory symptoms are related to late inflammatory changes from COVID-19. continue prednisone as above. There was not felt to be any benefit from room to severe at this juncture given the duration of her symptoms. (5) Asthma: Code(s): J45.909 - Unspecified asthma, uncomplicated Status: Acute Assessment and Plan: Not in acute exacerbation. No wheezing noted on exam. Continue nebulized bronchodilators, singulair, and Symbicort (6) Hypertension: Code(s): I10 - Essential (primary) hypertension Status: Chronic Assessment and Plan: She is not currently on any antihypertensives. She was previously on amlodipine which was discontinued by PCP. BP remained well controlled. (7) Generalized weakness: Code(s): R53.1 - Weakness Status: Acute Assessment and Plan: Patient endorsed feeling weak, which is most likely due to deconditioning from illness and decreased mobility. TSH and B12 wnl. She was evaluated by PT and OT and will continue with home health therapy (8) Abnormal TSH: Code(s): R79.89 - Other specified abnormal findings of blood chemistry Status: Acute Assessment and Plan: TSH mildly decreased with normal T3 and T4. She will need to follow up for repeat testing in 6 weeks. (9) Sinus tachycardia: Code(s): R00.0 - Tachycardia, unspecified Status: Acute Assessment and Plan: Patient monitored on telemetry and noted to have mild sinus tachycardia ranging in the 90-115 range. Evident on EKG. Etiology not entirely clear,
--- NOTE | 2020-03-22 14:46 | PM.PNPUL ---
Progress Note: A&P Assessment and Plan (1) Bilateral pulmonary embolism: Onset Date: ~02/2020 Code(s): I26.99 - Other pulmonary embolism without acute cor pulmonale Status: Acute (2) COVID-19: Code(s): U07.1 - COVID-19 Status: Acute Assessment and Plan: I see no benefit from Remedesivir at this stage as she is past the infectious stage (3) Acute respiratory failure with hypoxia: Code(s): J96.01 - Acute respiratory failure with hypoxia Status: Acute (4) Asthma: Code(s): J45.909 - Unspecified asthma, uncomplicated Status: Acute (5) Acute on chronic respiratory failure: Code(s): J96.20 - Acute and chronic respiratory failure, unspecified whether with hypoxia or hypercapnia Status: Acute Assessment and Plan: Her symptoms are worse likely from worsening bilateral inflammation. This is a late inflammatory phase of COVID-19 - Prednisone 40 mg daily is equivalent to Dexamethasone 6 mg daily so I would continue either or for 10 days in an effort to minimize permanent lung damage (6) Pulmonary embolism: Code(s): I26.99 - Other pulmonary embolism without acute cor pulmonale Status: Acute Assessment and Plan: Clot burden is the same and not likely contributing to current symptoms. PE is expected to remain on imaging for up to 4-6 weeks. It is unlikely that this is a NOAC failure and I would restart Eliquis 5 mg PO bid at your leisure. Subjective Date/time seen: 03/22/20 14:46 Interval history: Doing well and going home on oxygen. likely does not need oxygen at rest Exam Const: General: cooperative, healthy appearing, comfortable and no acute distress HENMT: Head: normocephalic and atraumatic Eyes: General: appearance normal, both eyes and all related structures Neck: Neck: trachea midline and supple Resp: Effort & Inspection: normal respiratory effort Auscultation: crackles Cardio: Jugular venous distension: no JVD Rate: regular rate Rhythm: regular rhythm Heart sounds: S1 normal heart sound present and S2 normal heart sound present GI: Inspection: normal to inspection Auscultation: normal bowel sounds Skin: General skin exam: normal color and no rashes or lesions noted Neuro: General: oriented to person, oriented to place, oriented to time and patient oriented x3 Cognition (Neuro): normal cognition Speech: normal speech Gait exam (Neuro): Normal gait present Psych: Appearance: grossly normal and well kempt Mental Status: mental status grossly normal Objective Data Vital Signs Vital Signs: Vital Signs - 24 hr 03/21/20 14:53 03/21/20 15:03 03/21/20 16:00 Temperature Pulse Rate 111 H 101 H 114 H Respiratory Rate 18 18 Blood Pressure Pulse Oximetry 03/21/20 20:00 03/21/20 20:49 03/21/20 21:09 Temperature 36.6 C Pulse Rate 105 H 108 H 102 H Respiratory Rate 22 H 18 Blood Pressure 121/85 Pulse Oximetry 96 96 03/22/20 00:00 03/22/20 02:46 03/22/20 02:53 Temperature Pulse Rate 99 90 95 Respiratory Rate 20 18 Blood Pressure Pulse Oximetry 97 03/22/20 04:00 03/22/20 05:16 03/22/20 08:00 Temperature 36.4 C Pulse Rate 96 90 90 Respiratory Rate 20 20 Blood Pressure 107/61 Pulse Oximetry 98 98 03/22/20 11:00 03/22/20 11:05 03/22/20 11:07 Temperature Pulse Rate Respiratory Rate Blood Pressure Pulse Oximetry 85 L 87 L 90 03/22/20 11:10 03/22/20 11:13 03/22/20 11:20 Temperature Pulse Rate Respiratory Rate Blood Pressure Pulse Oximetry 85 L 89 L 92 03/22/20 14:00 Temperature 37.0 C Pulse Rate 106 H Respiratory Rate 22 H Blood Pressure 116/72 Pulse Oximetry 98 Intake/Output Intake/Output: Intake & Output 03/19/20 03/20/20 03/21/20 03/22/20 23:59 23:59 23:59 23:59 Intake Total 1240 1840 2400 580 Output Total 1650 2000 2050 0 Balance -410 -160 350 580 Meds/Results Medications: Active Medications Generi
[2020-03-22 20:04] LABS: SARS-CoV-2 RNA PCR Negative
[2020-03-24 01:41] LABS: Pneumococcal Antigen Urine Not Detected (Not Detected)
[2020-03-24 20:04] LABS: Legionella pneumophila Ag Ur Not Detected (Not Detected)
== END 2020-03-22 16:05 | disposition home health service (06) | DRG 175 ==
LOC: ANHED 03-19 00:52 → ANH3MEDSUR 03-19 01:20
PROVIDERS: Physician Assistant; Admitting Provider Family Medicine; Emergency Provider Emergency Medicine; PCP Physician Assistant; Visit Provider Family Medicine
DX: I26.99 Other pulmonary embolism without acute cor pulmonale (principal); J96.21 Acute and chronic respiratory failure with hypoxia; I82.411 Acute embolism and thrombosis of right femoral vein; I82.442 Acute embolism and thrombosis of left tibial vein; I82.491 Acute embolism and thrombosis of other specified deep vein of right lower extremity; B94.8 Sequelae of other specified infectious and parasitic diseases; Z20.828 Contact with and (suspected) exposure to other viral communicable diseases; J45.909 Unspecified asthma, uncomplicated; G62.9 Polyneuropathy, unspecified; M19.90 Unspecified osteoarthritis, unspecified site; I10 Essential (primary) hypertension; E78.5 Hyperlipidemia, unspecified; R79.89 Other specified abnormal findings of blood chemistry; R00.0 Tachycardia, unspecified; T48.6X5A Adverse effect of antiasthmatics, initial encounter; Z96.653 Presence of artificial knee joint, bilateral; Z86.718 Personal history of other venous thrombosis and embolism; Z90.710 Acquired absence of both cervix and uterus; I82.461 Acute embolism and thrombosis of right calf muscular vein
CPT/HCPCS: 36415; 36600; 71045; 71275; 80048; 80053; 82375; 82550; 82607; 82728; 82746; 82805; 83050; 83615; 83735; 83880; 84439; 84443; 84480; 85025; 85027; 85610; 85730; 86140; 87040; 87070; 87205; 87449; 87635; 87899; 93005; 93306; 93970; 94618; 94640; 96365; 96366; 96367; 96372; 96375; 97110; 97116; 97161; 97165; 99291; A9270; C9803; G0378; J0456; J1650; J1940; J2543; J7060; J7512; Q9967; U0003

== ENCOUNTER 2020-03-28 11:56 | Emergency (ER) | payer BC, SELFPAY ==
[2020-03-28] VITALS (13 sets, daily range): BP systolic 122–149; BP diastolic 91–105; PULSE 84–105; RESP 18–35; O2SAT 98–100
--- NOTE | ~2020-03-28 | CT_ITS ---
EXAMINATION: CTA chest PE protocol DATE: 03/28/2020 13:56 INDICATION: Shortness of breath. COVID-19 positive on 02/13/2020. TECHNIQUE: Computed tomography angiography (CTA) of the chest was performed with 100 mL Omnipaque-350 intravenous contrast timed to evaluate the pulmonary arteries. Coronal maximum intensity projection 3D-reconstructions were created by the technologist. Automated exposure control and iterative reconst ruction technique were employed. The dose-length product was 351.30 mGy-cm. COMPARISON: Chest CT 03/20/2020, 02/29/20 FINDINGS: The lung volumes are small. There are widespread groundglass opacities and septal thickenin g in the lungs. No bronchiectasis or honeycombing. No pleural effusion. The heart size is normal. No pericardial effusion. There are acute pulmonary emboli in basilar right lower lobe. There are changes of cholecystectomy. There is severe lower thoracic spondylosis. IMPRESSION: 1. Acute pulmonary emboli in basilar right lower lobe with interval improvement. 2. Diffuse lung disease with interval improvement, consistent with COVID-19 pneumonia. Reviewed, dictated and finalized at location A. [facility] IMPRESSION: 1. Acute pulmonary emboli in basilar right lower lobe with interval improvement . 2. Diffuse lung disease with interval improvement, consistent with COVID-19 pne umonia.
--- NOTE | ~2020-03-28 | XR_ITS ---
XR chest 1V portable 03/28/2020 12:49 Indication: Shortness of breath. Procedure: AP portable chest Comparison: Comparison to multiple prior studies sequentially, with oldest reviewed study dated 09/2015. Findings: Significant improvement of bilateral airspace disease, consistent with resolving pneumonia. No pleural effusion or pneumothorax. There are cholecystectomy clips. No acute osseous abnormality. Impression: 1: Significant improvement of bilateral airspace disease, consistent with resolving pneumonia. Reviewed, dictated and finalized at location A. [employer] Impression: 1: Significant improvement of bilateral airspace disease, consistent with resol ving pneumonia.
--- NOTE | ~2020-03-28 | US_ITS ---
EXAMINATION: US venous doppler [facility] DATE: 03/28/2020 14:25 INDICATION: Left calf pain. TECHNIQUE: Grayscale ultrasound images without and with compression and Doppler ultrasound images of the left lower extremity veins were obtained. COMPARISON: Ultrasound 03/19/2020 FINDINGS: The visualized portions of left common femoral vein, profunda (deep) femoral vein, femoral vein, popl iteal vein, peroneal veins, and greater saphenous vein outflow are patent. There is thrombus in a lef t posterior tibial vein. IMPRESSION: 1. Persistent acute deep vein thrombosis involving a left posterior tibial vein. Reviewed, dictated and finalized at location A. [facility] IMPRESSION: 1. Persistent acute deep vein thrombosis involving a left posterior tibial vei n.
--- NOTE | 2020-03-28 12:13 | ECG_ITS ---
Measurements Intervals [place] Rate: 98 P: 23 TN: 151 QRS: -6 QRSD: 81 T: 3 QT: 308 QTc: 394 Interpretive Statements SINUS RHYTHM VOLTAGE CRITERIA FOR LVH POOR R WAVE PROGRESSION, ANTERIOR LEADS BORDERLINE T WAVE ABNORMALITY- INFERIOR LEADS BASELINE ARTIFACT- I, II, III, AVR, AVL, AVF, V6 BORDERLINE ECG Electronically Signed On 03-28-2020 12:59:33 MEDICARE NURSE by Raphael Callaway D.O.
[2020-03-28 12:39] LABS: Basophils Absolute Auto 0.1 K/mm3 (0.0-0.1); Basophils Percent Auto 0.8 % (0.2-1.2); Eosinophils Absolute Auto 0.1 K/mm3 (0-0.3); Eosinophils Percent Auto 1.1 % (0-4.4); Hematocrit 37.8 % (37.0-47.0); Hemoglobin 12.5 g/dL (12.0-15.0); Immature Granulocyte Absolute 0.12 K/mm3 (0.00-0.031); Immature Granulocyte Percent A 1.5 % (0-0.5); Lymphocytes Absolute Auto 1.33 K/mm3 (0.9-3.2); Lymphocytes Percent Auto 16.9 % (18.3-44.2); Mean Corpuscular HGB Conc 33.1 g/dl (32-36); Mean Corpuscular Hemoglobin 30.4 pg (26-34); Mean Platelet Volume 9.1 fl (7.4-10.4); Monocytes Absolute Auto 0.7 K/mm3 (0.1-0.6); Neutrophils Absolute Auto 5.6 K/mm3 (1.3-6.7); Neutrophils Percent Auto 70.7 % (45.5-73.1); Platelet Count Result 384 k/mm3 (150-375); Red Blood Count 4.11 M/mm3 (4.2-5.4); Red Cell Distribution Width 13.5 % (11.5-14.5); White Blood Count 7.9 K/mm3 (4.5-10.0)
[2020-03-28 12:50] LABS: Alanine Aminotransferase 35 U/L (4-35); Albumin Level 3.5 g/dL (3.5-5.1); Alkaline Phosphatase 70 U/L (38-126); Anion Gap 3 mmol/L (8-16); Aspartate Amino Transferase 27 U/L (14-36); Bilirubin,Total 0.5 mg/dL (0.2-1.3); Blood Urea Nitrogen 13 mg/dL (7-17); Calcium 8.9 mg/dL (8.4-10.2); Carbon Dioxide 32 mmol/L (22-30); Chloride 102 mmol/L (98-107); Estimated CRCL calculation 82 ml/min; Estimated Glomerular Filt Rate > 60; Glucose 105 mg/dL (65-105); INR 1.2; Potassium 3.9 mmol/L (3.4-5.0); Prothrombin Time 15.9 Seconds (11.1-14.7); Sodium 137 mmol/L (137-145)
[2020-03-28 12:51] LABS: Partial Thromboplastin Time 34.6 SECONDS (22.3-36.8)
[2020-03-28 12:53] LABS: D Dimer 1.23 ug/mL (<0.48)
[2020-03-28 13:01] LABS: Troponin I < 0.012 ng/mL (0.000-0.034)
[2020-03-28 13:17] LABS: Add Urine Microscopic? YES; Appearance Urine Clear (Clear); Bilirubin Urine Negative (Negative); Blood Urine Negative (Negative); Color Urine Straw (Yellow); Glucose Urine UA Negative (Negative); Ketones Urine Negative (Negative); Leukocyte Esterase Ur Trace LEU/UL (Negative); Mucus Urine Rare /lpf; Nitrate Urine Negative (Negative); Protein Urine Negative (Negative); RBC Urine 0-2 /hpf (0-2); Specific Grav Ur 1.006 (1.001-1.035); Squamous Epithelial Cell Urine Many /hpf (Few); Transitional Epi Cells Urine Rare /hpf (None Seen); Urobilinogen Urine Negative mg/dL (<2.0)
--- NOTE | 2020-03-28 13:26 | PC.NURSE ---
Call to US, states that they cannot get the patient until ABG results are back. Explained that the ABG's were ordered over an hour ago and not done. Preparing to contact respiratory.
--- NOTE | 2020-03-28 13:51 | PC.NURSE ---
Pt to CT and ultrasound via stretcher.
--- NOTE | 2020-03-28 14:50 | ED.GENADULT ---
HPI - General Adult General Chief complaint: Shortness of Breath/Dyspnea Stated complaint: leg pain/known blood clots Time Seen by Provider: 03/28/20 12:11 Source: patient Mode of arrival: ambulatory Limitations: no limitations History of Present Illness HPI narrative: Patient presents with chief complaint of shortness of breath with exertion and pain in her lower left calf. Patient was admitted to this hospital and diagnosed with pneumonia PE as well as DVT in her lower extremities. Patient was started on Eliquis 5 mg twice daily which she states she has been taking daily as instructed without any missed doses. Patient also has asthma for which she takes Symbicort and Singulair. She notes her course of prednisone approximately 3 to 4 days ago. Patient states physical therapy has been coming to her house to work with her and noticed the soreness in her left thigh and call her doctor and she was told to come to the emergency department to be further evaluated especially since she has noted shortness of breath with exertion. Patient denies chest pain, pain with inspiration, fever, chills, nausea, vomiting, diarrhea, abdominal pain or any other concerns. Related Data Home Medications Medication Instructions Recorded Confirmed ergocalciferol (vitamin D2) 50,000 unit DIRECTED 03/01/20 03/19/20 [Vitamin D2] montelukast [Singulair] 10 mg PO HS 03/01/20 03/19/20 Allergies Allergy/AdvReac Type Severity Reaction Status Date / Time bee venom protein (honey bee) Allergy Severe Anaphylaxis Verified 03/04/20 06:01 milk Allergy Severe Abdominal Verified 03/02/20 10:41 Pain nickel Allergy Severe Swelling Verified 03/02/20 10:41 spider venom Allergy Severe Anaphylaxis Verified 03/04/20 06:01 tetracycline Allergy Severe Unknown Verified 03/02/20 10:41 wheat Allergy Severe GI UPSET Verified 03/02/20 10:41 adhesive tape AdvReac Mild Redness of Verified 03/04/20 06:01 Skin amoxicillin AdvReac Mild Vomiting Verified 03/04/20 06:01 clarithromycin AdvReac Mild Vomiting Verified 03/04/20 06:01 codeine AdvReac Mild Nausea and Verified 03/04/20 06:01 Vomiting fentanyl AdvReac Mild Nausea and Verified 03/04/20 06:01 Vomiting Sulfa (Sulfonamide AdvReac Mild Vomiting Verified 03/04/20 06:01 Antibiotics) trimethoprim AdvReac Mild Vomiting Verified 03/04/20 06:01 ALL ANESTHETICS Allergy Severe NAUSEA/SEVERE Uncoded 03/01/20 09:13 VOMITING BEEF Allergy Severe GI UPSET Uncoded 03/01/20 09:13 NIGHTSHADE VEGETABLES Allergy Severe SWELLING Uncoded 03/01/20 09:13 AND INFLAMMATION IN JOINTS Pork Allergy Severe GI UPSET Uncoded 03/01/20 09:13 REFINED WHITE SUGAR Allergy Severe GI UPSET Uncoded 03/01/20 09:13 STAINLESS STEEL Allergy Severe UNKNOWN Uncoded 03/01/20 09:13 Review of Systems Review of Systems: Narrative: CONSTITUTIONAL: Denies fever, chills, or sweats. EYES: Denies visual changes, redness, or discharge. ENT: Denies rhinorrhea, congestion, sore throat, or otalgia. CARDIOVASCULAR: Denies chest pain, palpitations, or edema. RESPIRATORY: Reports dyspnea on exertion and dry cough GASTROINTESTINAL: Denies abdominal pain, nausea, vomiting, or diarrhea. GENITOURINARY: Denies dysuria or hematuria. SKIN: Denies rash or itching. MUSCULOSKELETAL: Reports left calf pain denies back pain, joint pain, or myalgia. NEUROLOGIC: Denies headache, numbness, dizziness, or weakness. PSYCHIATRIC: Denies anxiety or depression. COUNT INCLUDES THE [facility] Past Medical History Medical History (Updated 03/28/20 @ 15:24 by Isaiah Verma PA-C) Asthma Deep venous thrombosis She reports a DVT prior to 1989 (cannot remember exact date) and 1994 Diverticulitis Status post left colectomy. Hyperlipidemia Intolerant to statins secondary to muscle pain. Hypertension Mitral valve prolapse Osteoarthritis Peripheral neuropathy Venous insufficiency Surgical History Surgical History History o
--- NOTE | 2020-03-28 15:01 | PC.NURSE ---
STAR Jarrett, at bedside discussing plan of care. Explained to patient that according to her cxr, it appears that she may hve been exposed to covid. Pt tells Luiza that she knows that she had covid when she was in the hospital. Pt moved to private room.
== END 2020-03-28 16:15 | disposition home or self-care (01) ==
PROVIDERS: Physician Assistant; Emergency Provider Emergency Medicine
DX: U07.1 COVID-19 (principal); I26.99 Other pulmonary embolism without acute cor pulmonale; J45.909 Unspecified asthma, uncomplicated; I82.402 Acute embolism and thrombosis of unspecified deep veins of left lower extremity; I10 Essential (primary) hypertension; M19.90 Unspecified osteoarthritis, unspecified site
CPT/HCPCS: 36415; 71045; 71275; 80053; 81001; 84484; 85025; 85380; 85610; 85730; 87804; 93005; 93971; 99284; Q9967

== ENCOUNTER 2020-06-06 13:04 | Outpatient (CLI) | payer BC, SELFPAY ==
--- NOTE | 2020-06-06 14:53 | WPDSIXMINUTE ---
Six Minute Walk This is a 6 minutes walk test. The test was performed and interpreted in accordance with the 2014 ERS/ATS task force guidelines. test performed with wheeled walker and 4 L NC oxygen which is her home level. Findings: The patient's resting 4L oxygen saturation measured by pulse oximetry was 98% and her heart rate was 108 bpm. Patient ambulated for 151 meters and oxygen saturation remained 97 to 99%. Heart rate at the end of the study was 114 bpm. There are no prior studies for comparison.
== END 2020-06-06 13:05 | disposition home or self-care (01) ==
PROVIDERS: PCP Physician Assistant
DX: I27.20 Pulmonary hypertension, unspecified (principal); Z86.16 Personal history of COVID-19
CPT/HCPCS: 94618

== ENCOUNTER 2020-10-09 13:30 | Outpatient (RCR) | payer BC, SELFPAY ==
[2020-06-12 15:47] VITALS: PULSE 91
--- NOTE | 2020-09-05 08:30 | PCCPR ---
pt [facility] pulm rehab thursday 09/07 due to traveling back from [place]. Plans to attend 09/10
== END 2020-10-09 23:59 | disposition home or self-care (01) ==
LOC: ANHCPREHAB 13:30
PROVIDERS: PCP Physician Assistant
DX: I27.20 Pulmonary hypertension, unspecified (principal)
CPT/HCPCS: 97150; G0239; G0424

== ENCOUNTER 2020-10-26 13:30 | Outpatient (RCR) | payer BC, SELFPAY ==
[2020-10-11 00:06] VITALS: PULSE 91
== END 2020-10-26 16:10 | disposition home or self-care (01) ==
LOC: ANHCPREHAB 13:30
DX: I27.20 Pulmonary hypertension, unspecified (principal)
CPT/HCPCS: G0239

== ENCOUNTER 2020-11-07 08:00 | Outpatient (CLI) | payer BC, SELFPAY ==
--- NOTE | 2020-11-07 12:21 | WPDSIXMINUTE ---
Six Minute Walk Procedure Procedure Performed Pulmonary Stress Test (6 min walk) Six Minute Walk This is a 6 minutes walk test. The test was performed and interpreted in accordance with the 2014 ERS/ATS task force guidelines. this test was performed on patient's home setting of 1 L nasal cannula oxygen. Findings: The patient's resting oxygen saturation on 1 L NC measured by pulse oximetry was 98% and her heart rate was 87 bpm. Patient ambulated for 305 meters and oxygen saturation remained 94 to 100%. Heart rate at the end of the study was 106 bpm. There are no prior studies for comparison.
== END 2020-11-07 08:01 | disposition home or self-care (01) ==
DX: I27.20 Pulmonary hypertension, unspecified (principal); Z86.16 Personal history of COVID-19
CPT/HCPCS: 94618

== ENCOUNTER 2020-11-07 08:13 | Outpatient (CLI) | payer BC, SELFPAY ==
--- NOTE | ~2020-11-07 | XR_ITS ---
XR shoulder LT min 2V 11/07/2020 09:14 INDICATION: Shoulder pain PROCEDURE: 4 views left shoulder COMPARISON: No prior studies for comparison. The FINDINGS: Fracture, dislocation or subluxation is not identified. The soft tissues appear within norm al limits. No foreign bodies are identified. IMPRESSION: 1: NO ACUTE BONE OR JOINT ABNORMALITY IDENTIFIED. Reviewed, dictated and finalized at location A.
[2020-11-07 09:09] LABS: Rheumatoid Factor < 8.6 IU/ML (<12)
[2020-11-07 09:33] LABS: Erythrocyte Sedimentation Rate 24 mm/hr (0-20)
[2020-11-10 20:04] LABS: Anti Nuclear Antibody Pattern Nuclear, Nucleolar; Anti Nuclear Antibody Titer >=1:1280 (Negative)
== END 2020-11-07 08:14 | disposition home or self-care (01) ==
PROVIDERS: Visit Provider Emergency Medicine
DX: M79.89 Other specified soft tissue disorders (principal); M25.512 Pain in left shoulder
CPT/HCPCS: 36415; 73030; 85652; 86038; 86039; 86430

== ENCOUNTER 2020-11-12 14:55 | Outpatient (CLI) | payer BC, SELFPAY ==
--- NOTE | ~2020-11-12 | XR_ITS ---
XR finger 1st RT min 2V DATE: 11/12/2020 15:54 INDICATION: Right thumb pain. No known injury. TECHNIQUE: 3 views COMPARISON: None FINDINGS: There is osteoarthritic change at the first carpometacarpal, first metacarpophalangeal and interphalangeal joints. No fracture or dislocation, periosteal reaction or bone destruction is detected. IMPRESSION: Polyarticular osteoarthritis Reviewed, dictated and finalized at location B.
--- NOTE | ~2020-11-12 | XR_ITS ---
XR foot LT min 3V DATE: 11/12/2020 15:54 INDICATION: Left foot pain for 10 days. No known injury. TECHNIQUE: 4 views COMPARISON: None FINDINGS: Mild plantar and posterior calcaneal enthesopathy. There are osteoarthritic changes at the tarsal and tarsometatarsal joints and at the second and third metatarsophalangeal joints and some interphalangeal joints. There is a prosthetic joint at the first metatarsophalangeal joint. There is a screw at the neck of the second metatarsal bone. No recent fracture or dislocation, periosteal reaction or bone destruction. IMPRESSION: Prosthetic first metatarsophalangeal joint Screw at the neck of second metatarsal Polyarticular osteoarthritis, including particularly the second and third metatarsophalangeal joints Calcaneal enthesopathy Reviewed, dictated and finalized at location B. IMPRESSION: Prosthetic first metatarsophalangeal joint Screw at the neck of second metatarsal Polyarticular osteoarthritis, including particularly the second and third metat arsophalangeal joints Calcaneal enthesopathy
--- NOTE | ~2020-11-12 | XR_ITS ---
XR foot RT min 3V DATE: 11/12/2020 15:54 INDICATION: Stubbed right foot. Lateral pain. TECHNIQUE: 4 views COMPARISON: None FINDINGS: Diffuse osteopenia. Plantar calcaneal enthesopathy. There is distal Achilles tendon calcification. There is osteoarthritic change at the tarsal and tarsometatarsal joints. There is osteophyte is at th e first metatarsophalangeal joint. Status post bunionectomy. No recent fracture or dislocation, periosteal reaction or bone destruction is detected. IMPRESSION: Osteopenia Polyarticular osteoarthritis Plantar calcaneal enthesopathy No recent fracture or dislocation is detected Reviewed, dictated and finalized at location B.
[2020-11-12 15:58] LABS: Uric Acid 6.6 mg/dL (2.5-7.5)
== END 2020-11-12 14:56 | disposition home or self-care (01) ==
PROVIDERS: Visit Provider Emergency Medicine
DX: M10.9 Gout, unspecified (principal); M19.041 Primary osteoarthritis, right hand; M19.071 Primary osteoarthritis, right ankle and foot; M19.072 Primary osteoarthritis, left ankle and foot; M85.871 Other specified disorders of bone density and structure, right ankle and foot; M77.31 Calcaneal spur, right foot; M77.32 Calcaneal spur, left foot
CPT/HCPCS: 36415; 73140; 73630; 84550